=== PATIENT | female | born 1930 | race Caucasian/White ===

== ENCOUNTER 2018-05-02 14:32 | Inpatient (IN) | payer MEDICARE ==
--- NOTE | 2018-05-02 14:39 | ED ---
Shortness of Breath - HPI Summary HPI Summary: An 87 y/o F brought in by ambulance presents to ED with c/o SOB onset yesterday and worsening today. Pt has no PMHx of respiratory illness, but yesterday she noticed she was having increasing SOB and today, she was unable to catch her breath. Per EMS: her initial O2 sat was 80%, respiration rate: 30, and ETCO2: 58. Patient was given 1 duoneb, 2 nitro (denied CP to EMS) and put on C-Pap which improved her breathing en route. Upon arrival in ED, her O2 sat is 98%, ETCO2: 42. Pt has a PMHx of a-fib and takes Warfarin. - History of Current Complaint Hx Obtained From: EMS Onset/Duration: Gradual Onset, Lasting Days, Still Present Timing: Constant Current Severity: Severe Dyspnea At: Rest Alleviating Factors: EMS Tx - Allergy/Home Medications Allergies/Adverse Reactions: Allergies Allergy/AdvReac Type Severity Reaction Status Date / Time No Known Allergies Allergy Verified 11/14/15 16:07 Home Medications: Home Medications Dextran 70/Hypromellose [Artificial Tears] 1 each OP Q2HR 05/02/18 [History Confirmed 05/02/18] Fluorometholone 0.1% OPTH.MANUEL* [Fml 0.1% Opth.susp*] 1 drop .SEE ORDER BID 05/02 [History Confirmed 05/02/18] Metoprolol Succinate [Metoprolol Succinate ER] 200 mg PO BEDTIME 05/02/18 [ History Confirmed 05/02/18] Oxybutynin Chloride [Oxybutynin Chloride ER] 10 mg PO QAM 05/02/18 [History Confirmed 05/02/18] Rosuvastatin Calcium 20 mg PO EVERY OTHER DAY 05/02/18 [History Confirmed ] Spironolactone 25 mg PO SEE INSTRUCTIONS 05/02/18 [History Confirmed 05/02/18] Warfarin Sodium 5 mg PO DAILY 05/02/18 [History Confirmed 05/02/18] dilTIAZem HCl [Cartia Xt] 180 mg PO DAILY 05/02/18 [History Confirmed 05/02/18] PMH/Surg Hx/FS Hx/Imm Hx Previously Healthy: No Cardiovascular History: Reports: Hx Atrial Fibrillation Respiratory History: Denies: Hx Chronic Obstructive Pulmonary Disease (COPD) Sensory History: Reports: Hx Hearing Aid - Cancer History Hx Chemotherapy: No Hx Radiation Therapy: No - Immunization History Date of Tetanus Vaccine: upt o date Date of Influenza Vaccine: upto date - Family History Known Family History: Positive: None Family History: neg: Breast CA - Social History Occupation: Retired Lives: Alone Alcohol Use: Weekly Hx Substance Use: No Substance Use Type: Reports: None Hx Tobacco Use: No Smoking Status (MU): Never Smoked Tobacco Review of Systems Negative: Chest Pain Positive: Shortness Of Breath All Other Systems Reviewed And Are Negative: Yes Physical Exam - Summary Physical Exam Summary: Appearance: The patient is well-nourished in no acute distress and in no acute pain. Skin: The skin is warm and dry and skin color reflects adequate perfusion. HEENT: The head is normocephalic and atraumatic. The pupils are equal and reactive. The conjunctivae are clear and without drainage. Nares are patent and without drainage. Mouth reveals moist mucous membranes and the throat is without erythema and exudate. The external ears are intact. The ear canals are patent and without drainage. The tympanic membranes are intact. Neck: the neck is supple with full range of motion and non-tender. There are no carotid bruits. There is no neck vein distension. Respiratory: Chest is non-tender. There are diffuse expiratory wheezes, decreased breath sounds, and increased E to I. Cardiovascular: Heart is regular rate and rhythm. There is no murmur or rub auscultated. There is no peripheral edema and pulses are symmetrical and equal. Abdomen: The abdomen is soft and non-tender. There are normal bowel sounds heard in all four quadrants and there is no organomegaly palpated. Musculoskeletal: There is no back tenderness noted. Extremities are non-tender with full range of motion. There is good capillary refill. There is no peripheral edema or calf tenderness elicited. Neurological: Patient is alert and oriented to person, place and time. The patient has symmetrical motor strength in all four extremities. Cranial nerves are grossly intact. Deep tendon reflexes are symmetrical and equal in all four extremities. Psychiatric: The patient has an appropriate affect and does not exhibit any anxiety or depression. Triage Information Reviewed: Yes Vital Signs Reviewed: Yes Diagnostics - Laboratory Result Diagrams: 05/02/18 15:27 05/02/18 15:27 Lab Statement: Any lab studies that have been ordered have been reviewed, and results considered in the medical decision making process. - Radiology CXR Radiology Interpretation Completed By: Radiologist Summary of Radiographic Findings: IMPRESSION: CARDIOMEGALY WITH INTERSTITIAL EDEMA AND BILATERAL PLEURAL EFFUSIONS CONSISTENT WITH CHF. ED provider has reviewed this report. - EKG 1500 EKG Comparison: No Significant Change - from EKG on 02/02/11 Summary of EKG Findings: 60 bpm. Indeterminate rhythm. LBBB. Unchanged from EKG on 02/02/2011. Course/Dx - Course Course Of Treatment: Ms. Carrero doesn't have really any known lung disease but apparently became quite short of breath at home. The ambulance found her with a low pulse ox and tachycardia and tachypnea. She was apparently wheezing as they gave her an DuoNeb on the way in. This did seem to help her quite a bit and on arrival her pulse ox was in the mid 90s on 2 L. On exam she was tight and she was given additional nebulizer and some Solu-Medrol. I was concerned on her chest x-ray that she might have an infiltrate but the radiologist is reading his congestive heart failure. She does have a mildly elevated BNP although she chronically has an elevated BNP. The hospitalist service was contacted for admission. Fluids were held because of the possibility of CHF. - Diagnoses Provider Diagnoses: Respiratory insufficiency, CHF (congestive heart failure) - Physician Notifications Discussed Care of Patient With: Vesna Corey - hospitalist Time Discussed With Above Provider: 15:55 Instructed by Provider To: Admit As Inpatient - Critical Care Time Critical Care Time: 30-74 min - 30 mins CCT Discharge - Sign-Out/Discharge Documenting (check all that apply): Patient Departure - ADMIT Patient Received Moderate/Deep Sedation with Procedure: No - Discharge Plan Condition: Stable Disposition: ADMITTED TO [facility] - Billing Disposition and Condition Condition: STABLE Disposition: Admitted to [facility] - Attestation Statements Document Initiated by Scribe: Yes Documenting Scribe: Patricia Hernandez Provider For Whom Scribe is Documenting (Include Credential): Dr. Polo Garg MD Scribe Attestation: Patricia Vergara scribed for Dr. Polo Garg MD on 05/02/18 at 2042. Scribe Documentation Reviewed: Yes Provider Attestation: The documentation as recorded by the scribheron, Patricia Hernandez accurately reflects the service I personally performed and the decisions made by me, Dr. Polo Garg MD Status of Scribe Document: Viewed
[2018-05-02] MEDS ORDERED: methylPREDNISolone 125 MG* 2 ML VIAL IV ONE (14:50)
[2018-05-02] MEDS ORDERED: Albuterol/Ipratropium NEB.SOL* Albuterol 2.5 MG/Ipratropium 0.5 MG 3 ML INH ONE ×2 (14:50→15:25)
--- OUTSIDE RECORDS SUMMARY | 2018-05-02 15:00 | XMS REPORT | Continuity of Care Document ---
:1930 External Reference #:[id number] Author Name Kellie Bhat O.D. Address [address] [place] [address] Care Team Providers Name Role Phone Krista Schmitz M.D. Primary Care Physician Unavailable Payers Date Identification Numbers Payment Provider Subscriber Effective: 1994 Policy Number: [id number] Medicare - [facility] Janelle Carrero PayID: [id number] [address] [place] [address] Policy Number: [id number] [facility] Janelle Carrero PayID: [id number] [address] [place] [address] Advance Directives Description No Information Available Problems Date Description Provider Status Onset: Hearing loss Active Onset: Bladder muscle dysfunction - overactive Active Onset: Heart irregular Active Onset: Essential hypertension Active Onset: Tremor Active Note: mild Onset: Hypercholesterolemia Active Onset: 01/28/2016 Tear film insufficiency Eddy Whitaker M.D. Active Onset: 01/28/2016 Vitreous degeneration Eddy Whitaker M.D. Active Onset: 01/28/2016 Presence of intraocular lens Eddy Whitaker M.D. Active Onset: 04/24/2018 Conjunctivochalasis Kellie Bhat O.D. 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 /2018 s eyes twice [place], a day for 1 O.D. week, then discontinue Artificial Tears 01/26 Active Solution 0.1-0.3% as needed Eddy Russ /Rosalie Whitaker M.D. Metoprolol Active Tablets ER 200mg Unknown Succinate ER 24HR Spironolactone Active Tablets 25mg Unknown Crestor Active Tablets 20mg Unknown Oxybutynin Active Tablets ER 10mg Unknown Chloride ER / 24HR Warfarin Sodium Active Tablets 5mg Unknown / Cartia XT Active Caps ER 180mg Unknown / 24HR Immunizations Description No Information Available Vital Signs Description No Information Available Results Description No Information Available Procedures Date Code Description Status 01/28/2016 98358 Est Patient Comprehensive Exam Completed 12/12/2013 82125 Determination Of Refractive State Completed 12/12/2013 42111 Est Patient Comprehensive Exam Completed 12/11/2011 01005 Determination Of Refractive State Completed 12/11/2011 34529 Est Patient Comprehensive Exam Completed 11/11/2010 47980 Remove Secondary Cataract, Laser (Yag) Completed 11/04/2010 03305 Remove Secondary Cataract, Laser (Yag) Completed 10/15/2010 01942 Est Patient Comprehensive Exam Completed 03/28/2008 85480 Est Patient Comprehensive Exam Completed 03/16/2007 85918 Scanning Laser W/Interp And Report Completed 03/16/2007 33244 Determination Of Refractive State Completed 03/16/2007 61099 Est Patient Comprehensive Exam Completed 04/15/2006 22740 Scanning Laser W/Interp And Report Completed 04/15/2006 74023 Visual Field Exam Extended Completed 03/16/2006 70978 Est Patient Comprehensive Exam Completed 06/03/2005 20706 Est Patient Intermediate Exam Completed 04/18/2005 04120 Scanning Laser W/Interp And Report Completed 04/18/2005 55178 Scanning Laser W/Interp And Report Completed 04/18/2005 25146 Visual Field Exam Extended Completed 12/03/2004 50883 Fundus Photography With Interpretation And Report Completed 12/03/2004 57709 Determination Of Refractive State Completed 12/03/2004 45671 Est Patient Comprehensive Exam Completed 11/04/2004 04577 Rescheduled Appointment Completed 05/17/2004 38501 Est Patient Intermediate Exam Completed 05/03/2004 00167 Scanning Laser W/Interp And Report Completed 11/17/2003 84804 Visual Field Exam Intermediate Completed 11/02/2003 35142 Determination Of Refractive State Completed 11/02/2003 65328 Est Patient Comprehensive Exam Completed Encounters Type Date Location Provider Dx Diagnosis Office Visit 04/28/2014 Kellie Nuñez, 375.15 Dry Eyes ( [place] 9:45a , hernandez Xiao Syndrome) Office Visit 09/02/2005 Eddy Nuñez, 365.01 Low Risk Open 10:45a , hernandez De La Cruz Angle Glaucoma/ Suspect Plan of Treatment 04/24/2018 - Kellie Bhat O.D.H04.123 Dry eye syndrome of bilateral lacrimal glandsComments:Both of your eyes appear to be dry. Use artificial tears as directed. You can use the tears more often if you are reading a book or are on the computer, as we tend to blink less, making our eyes dry out more.[facility] offers a few items in our optical department to help alleviate dry eye symptoms. use artificial tears 3-4 times a day both eyesstart FML drops twice a day both eyesFollow up:1 week or sooner as [id number] Conjunctivochalasis, bilateralNew Medication:Fluorometholone 0.1 % - 1 drop both eyes twice a day for 1 week, then discontinueComments:Smoking can increase the risk of developing or worsening any eye related disease, as well as affect your overall health. If you are a smoker, we strongly recommend that you quit.If you are not a smoker, we strongly recommend that you do not start.
--- OUTSIDE RECORDS SUMMARY | 2018-05-02 15:00 | XMS REPORT | Continuity of Care Document ---
:1930 External Reference #:[id number] Author Name Kellie Bhat O.D. Address [address] [place] [place] [address] Care Team Providers Name Role Phone Krista Schmitz M.D. 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 s eyes twice [place], a day for 1 O.D. week, then discontinue Artificial Tears 01/26 Active Solution 0.1-0.3% as needed Eddy Russ /2015 Dorothy Whitaker Metoprolol Active Tablets ER 200mg Unknown Succinate ER / 24HR Spironolactone Active Tablets 25mg Unknown Crestor Active Tablets 20mg Unknown Oxybutynin Active Tablets ER 10mg Unknown Chloride ER /0000 24HR Warfarin Sodium Active Tablets 5mg Unknown / Cartia XT Active Caps ER 180mg Unknown / 24HR Immunizations Description No Information Available Vital Signs Description No Information Available Results Description No Information Available Procedures Date Code Description Status 04/24/2018 33507 New Patient Comprehensive Exam Completed 01/28/2016 04497 Est Patient Comprehensive Exam Completed 12/12/2013 46293 Determination Of Refractive State Completed 12/12/2013 30466 Est Patient Comprehensive Exam Completed 12/11/2011 87511 Determination Of Refractive State Completed 12/11/2011 23035 Est Patient Comprehensive Exam Completed 11/11/2010 10171 Remove Secondary Cataract, Laser (Yag) Completed 11/04/2010 44092 Remove Secondary Cataract, Laser (Yag) Completed 10/15/2010 07361 Est Patient Comprehensive Exam Completed 03/28/2008 04358 Est Patient Comprehensive Exam Completed 03/16/2007 84178 Scanning Laser W/Interp And Report Completed 03/16/2007 37276 Determination Of Refractive State Completed 03/16/2007 83074 Est Patient Comprehensive Exam Completed 04/15/2006 91721 Visual Field Exam Extended Completed 04/15/2006 55511 Scanning Laser W/Interp And Report Completed 03/16/2006 45120 Est Patient Comprehensive Exam Completed 06/03/2005 10468 Est Patient Intermediate Exam Completed 04/18/2005 50677 Scanning Laser W/Interp And Report Completed 04/18/2005 04257 Scanning Laser W/Interp And Report Completed 04/18/2005 29100 Visual Field Exam Extended Completed 12/03/2004 50157 Fundus Photography With Interpretation And Report Completed 12/03/2004 92966 Determination Of Refractive State Completed 12/03/2004 78671 Est Patient Comprehensive Exam Completed 11/04/2004 81102 Rescheduled Appointment Completed 05/17/2004 21903 Est Patient Intermediate Exam Completed 05/03/2004 57458 Scanning Laser W/Interp And Report Completed 11/17/2003 14692 Visual Field Exam Intermediate Completed 11/02/2003 65720 Determination Of Refractive State Completed 11/02/2003 93289 Est Patient Comprehensive Exam Completed Encounters Type Date Location Provider Dx Diagnosis Office Visit 04/28/2014 Kellie Nuñez, 375.15 Dry Eyes ( [place] 9:45a , hernandez Xiao Syndrome) Office Visit 09/02/2005 Eddy Whitaker, Eddy Whitaker, 365.01 Low Risk Open 10:45a , hernandez De La Cruz Angle Glaucoma/ Suspect Plan of Treatment 05/01/2018 - Kellie Bhat O.D.H04.123 Dry eye syndrome of bilateral lacrimal glandsComments:Both of your eyes appear to be dry. Use artificial tears as directed. You can use the tears more often if you are reading a book or are on the computer, as we tend to blink less, making our eyes dry out more.[facility] offers a few items in our optical department to help alleviate dry eye symptoms. continue artificial tears as neededcontinue FML drops twice a day for 1 more week, then discontinueFollow up:1 year You can expect to have your eyes dilated at your next visit. If Dr. Bhat orders any additional testing, it may require extra time. We recommend that you bring sunglasses, as dilation drops often make you light sensitive until they wear off. We always recommend you bring someone to drive you home if you are uncomfortable driving with your eyes dilated. If you have any questions before your next visit, feel free to call our office at .C12.126 Conjunctivochalasis, bilateralComments:Smoking can increase the risk of developing or worsening any eye related disease, as well as affect your overall health. If you are a smoker , we strongly recommend that you quit.If you are not a smoker, we strongly recommend that you do not start.
[2018-05-02 15:35] LABS: ABS Basophils 0.1 10^3/ul (0-0.2); ABS Eosinophils 0 10^3/ul (0-0.6); ABS Lymphocytes 0.6 10^3/ul (1.0-4.8); ABS Monocytes 0.7 10^3/ul (0-0.8); ABS Neutrophils 7.9 10^3/ul (1.5-7.7); ABS Nucleated RBC 0 10^3/ul; Eosinophil % 0.4 %; Hematocrit 37 % (33-41); Hemoglobin 12.3 g/dL (12.0-16.0); Lymphocyte % 6.3 %; Mean Corpuscular HGB Conc 33 g/dL (31-36); Mean Corpuscular Hemoglobin 30 pg (27-31); Mean Corpuscular Volume 92 fL (80-97); Nucleated Red Blood Cells % 0; Platelet Count 287 10^3/uL (150-450); Red Blood Count 4.03 10^6 /uL (3.70-4.87); Red Cell Distribution Width 16 % (10.5-15); White Blood Count 9.3 10^3/uL (3.5-10.8)
[2018-05-02 15:53] LABS: Albumin 3.8 g/dL (3.2-5.2); Albumin/Globulin Ratio 1.2 (1-3); BUN/Creatinine Ratio 25.6 (8-20); C Reactive Protein 41.88 mg/L (<8.01); Calcium 9.1 mg/dL (8.6-10.3); EGFR African American 84.3 (>60); EGFR Non-African American 69.7 (>60); Globulin 3.1 g/dL (2-4); Potassium 3.8 mmol/L (3.5-5.0); Total Bilirubin 1.7 mg/dL (0.2-1.0); Total Protein 6.9 g/dL (6.4-8.9)
[2018-05-02 15:57] LABS: Troponin I 0.03 ng/mL (<0.04)
[2018-05-02] MEDS ORDERED: Al Hydrox/Mg Hydrox/Simet LIQ* 30 ML UDC PO PRN (16:47)
[2018-05-02] MEDS ORDERED: Acetaminophen TAB* 325 MG PO PRN (16:47)
[2018-05-02] MEDS ORDERED: Albuterol/Ipratropium NEB.SOL* Albuterol 2.5 MG/Ipratropium 0.5 MG 3 ML INH PRN (17:04)
[2018-05-02] MEDS ORDERED: Furosemide IV* 10 MG/ML VIAL (40 MG) IV ONE (17:06)
[2018-05-02 17:44] LABS: Influenza A Molecular NEGATIVE (Negative); Influenza B Molecular NEGATIVE (Negative)
[2018-05-02] MEDS ORDERED: Warfarin TAB(*) 5 MG PO SCH (17:45)
[2018-05-02] MEDS: Warfarin TAB(*) 5 MG PO SCH (18:44)
[2018-05-02] MEDS: Enoxaparin(*) 80 MG/0.8 ML SYR SUBCUT SCH (18:45)
--- NOTE | 2018-05-02 20:45 | HP ---
CC: Dr. Schmitz; Dr. Winston * HISTORY AND PHYSICAL: DATE OF ADMISSION: 05/02/18 PRIMARY CARE PROVIDER: Dr. Schmitz. CARDIOLOGY: Dr. Winston. CHIEF COMPLAINT: Shortness of breath. HISTORY OF PRESENT ILLNESS: Janelle Carrero is an 87-year-old female, who was brought in to the emergency department by the EMS/ambulance for acute respiratory failure, on CPAP. She was able to be weaned off CPAP in the emergency department and currently is on 6 L of oxygen with oxygen saturation of 100%. The patient is with her sister in the room. The patient's sister is 97 years old and she is the forklift driver in the family. The sisters live together. They are both hard of hearing. It appears that the patient's older sister is a better historian than the patient during the evaluation. The patient has had problems with shortness of breath for the past 2 weeks. They are both very tangential historians and mentioned that the patient feel couple of years ago. They also mentioned right ankle edema that happened some time ago, but that resolved. The patient uses CPAP at night, but never used oxygen in the past. The patient also noted that in the past several days she had problems with the eyes and that they were swollen. I believe what they are trying to describe is conjunctival edema. She was planning to see a doctor for it, but it improved by itself. Ms. Carrero denies any cough or purulent sputum production or fevers. It appears that she presented with congestive heart failure, although her weight had been unchanged and she did not recall to notice that she was retaining any fluid. I suspect the precipitating factor could have been bronchospasm due to viral infection. She is going to be placed on overnight observation with a diagnosis of bronchospasm, acute CHF likely diastolic, acute hypoxemic respiratory failure. PAST MEDICAL HISTORY: 1. History of diagnosis of diastolic CHF in the past for which she used to be on furosemide several years ago, but that was discontinued and the patient is not sure why. 2. History of atrial fibrillation, chronic, status post AV node ablation and pacer placement. 3. History of hypertension. 4. History of [id number] mitral regurgitation. MEDICATIONS: Include: 1. Aldactone 25 mg 3 times a week. 2. Coumadin 5 mg on a daily basis, but the patient stated that the dose was changed frequently and she does not remember the current dose. 3. Crestor 20 mg daily. 4. Metoprolol succinate 200 mg q.h.s. 5. Oxybutynin 10 mg q.a.m. 6. CPAP nightly. 7. Cartia XT 180 mg q.a.m. 8. Vitamin D3 50,000 units monthly p.o. ALLERGIES: No known drug allergies. FAMILY HISTORY: Reviewed and noncontributory. SOCIAL HISTORY: The patient quit smoking in the 1970s. She denies any alcohol or drug use. She lives with her sister who is 97 years old and is the forklift driver in the family. She names her sister, Norma Francisco as her surrogate. The patient was advised to ambulate with a cane, but usually she ambulates without support at home. She has history of falls, but none recently. The patient is not aware of discussing code status with her primary care provider in the past, but she wishes to be a full code for the time being. REVIEW OF SYSTEMS: Please see history of present illness. Please also note that the patient and the patient's sister are both very poor historians. The patient stated that shortness of breath developed 2 weeks ago. She is not sure if it is related to change in position. She denies any chest pain. She has had problems with swelling of the eyes several days ago, but that started resolving. She denies any problems with increased weight. Her appetite had been poor for the past 2 days and she had been lying in bed and sleeping a lot. The patient's sister also noted that she had abdominal breathing pattern in the past couple of days. The patient has history of chronic leg edema, which is not worse than prior. All the remaining 12 systems were reviewed with both of the sisters and were otherwise negative. PHYSICAL EXAMINATION GENERAL: The patient is a pleasant 87-year-old female, who is in no acute distress. The patient is alert and oriented x2. She is rather poor historian. She knows the year, but she is not certain to the date otherwise. VITAL SIGNS: Blood pressure of 173/83, heart rate of 60 and regular, respiratory rate 22, oxygen saturation 100% on 6 L of oxygen via nasal cannula, temperature of 98.1. HEENT: Head: Atraumatic, normocephalic. Eyes: Pupils are equal, reactive to light and accommodation. Oropharynx is clear. Mucosa moist. NECK: Supple. No JVD. No bruits bilaterally. RESPIRATORY: Crackles at bilateral bases and otherwise wheezes in bilateral mid lungs. CARDIOVASCULAR: Irregularly irregular rhythm with 2/6 systolic ejection murmur noted on auscultation of the apex. ABDOMEN: Soft, nontender. Bowel sounds are present in all 4 quadrants. EXTREMITIES: There is trace pedal edema, right more than left. There is no clubbing and no cyanosis. NEUROLOGIC: The patient is very hard of hearing. Cranial nerves II through XII are grossly intact. Speech clear. Motor strength is 5/5 bilaterally. SKIN: On evaluation of the skin, no ecchymotic areas or rashes noted. DIAGNOSTIC STUDIES/LAB DATA: White blood cell count of 9.3, hemoglobin 12.3, hematocrit 37, and platelets 287. Sodium was 143, potassium 3.8, chloride 107, carbon dioxide 27, BUN 20, creatinine 0.78. Liver function tests unremarkable apart from bilirubin total of 1.7. C- reactive protein was 41. Troponin of 0.03. Lactic acid of 2.4. Brain natriuretic peptide was 904. Portable chest x-ray, read by the radiologist, impression: "Cardiomegaly with interstitial edema and bilateral pleural effusions consistent with CHF." The patient's EKG showed likely AFib with left bundle branch block, heart rate of 60. I suspect it is a paced rhythm, although I am unable to visualize pacer spikes at this point. ASSESSMENT AND PLAN: 1. Acute hypoxemic respiratory failure, likely due to congestive heart failure. I suspect that the patient developed a viral illness that caused bronchospasm and conjunctival edema and that precipitated the congestive heart failure. At this point, the patient already received Solu-Medrol in the emergency department. I am going to continue prednisone 50 mg daily for bronchospasm. The patient's congestive heart failure is going to be treated with a dose of Lasix x1 tonight. I will be careful with diuretics due to the patient's history of low appetite and overall despite her congestive heart failure and pulmonary edema on x-ray, otherwise the patient appears not to have that much fluid on board. Daily weights are going to be continued to be checked as well as intake and output summaries. I will obtain a transthoracic echocardiogram to evaluate the patient's EF. 2. In regards to the patient's bronchospasm, it appears to be related to a viral infection. The patient has not had any fevers or purulent sputum production to support a bacterial infection and treatment with antibiotics at this point, but we will continue to monitor. 3. The patient has history of chronic atrial fibrillation and she is on Coumadin. Her INR is currently being drawn in the emergency department and we will follow with that appropriately. We will also continue the patient's Toprol -XL at 200 mg q.h.s. as well as Cartia XT 180 mg daily. 4. For DVT prophylaxis, the patient is going to be continued on Coumadin with INR checks daily. 5. The patient's code status so far is full. Both sisters had a discussion about possibility of do not resuscitate, but they are not willing to sign any documentation and they are aware that unless MOLST it is documented, they are going to be placed on a full code status. TIME SPENT: Approximately 68 minutes was spent on admission of this patient, more than half that time was spent [id number] with the patient during the interview and physical exam. [id number]/[facility] #: [id number] JASMEET
[2018-05-02] MEDS: Fluorometholone 0.1% OPTH.SUS* 5 ML BTL BOTH EYES SCH (21:59)
[2018-05-02] MEDS: Metoprolol Succinate XL TAB* 200 MG TAB.XL PO SCH (21:59)
[2018-05-02] MEDS: Docusate CAP* 100 MG PO SCH (21:59)
[2018-05-02] MEDS ORDERED: Artificial Tears* 15 ML BTL BOTH EYES PRN (22:00)
[2018-05-03] MEDS: Enoxaparin(*) 80 MG/0.8 ML SYR SUBCUT SCH ×2 (05:34→18:19)
[2018-05-03 06:16] LABS: ABS Basophils 0 10^3/ul (0-0.2); ABS Eosinophils 0 10^3/ul (0-0.6); ABS Lymphocytes 0.4 10^3/ul (1.0-4.8); ABS Monocytes 0.1 10^3/ul (0-0.8); ABS Neutrophils 5.8 10^3/ul (1.5-7.7); ABS Nucleated RBC 0 10^3/ul; Eosinophil % 0.1 %; Hematocrit 35 % (33-41); Hemoglobin 11.6 g/dL (12.0-16.0); Lymphocyte % 5.5 %; Mean Corpuscular HGB Conc 33 g/dL (31-36); Mean Corpuscular Hemoglobin 30 pg (27-31); Mean Corpuscular Volume 90 fL (80-97); Mean Platelet Volume 7.2 fL (7.4-10.4); Nucleated Red Blood Cells % 0; Platelet Count 225 10^3/uL (150-450); Red Blood Count 3.88 10^6 /uL (3.70-4.87); Red Cell Distribution Width 15 % (10.5-15); White Blood Count 6.3 10^3/uL (3.5-10.8)
[2018-05-03 06:19] LABS: INR 1.09 (0.77-1.02)
[2018-05-03 06:32] LABS: BUN/Creatinine Ratio 28.4 (8-20); Calcium 8.9 mg/dL (8.6-10.3); EGFR African American 80.7 (>60); EGFR Non-African American 66.7 (>60); Potassium 4.1 mmol/L (3.5-5.0)
[2018-05-03] MEDS: predniSONE TAB* 50 MG PO SCH (09:14)
[2018-05-03] MEDS: Docusate CAP* 100 MG PO SCH ×2 (09:14→20:40)
[2018-05-03] MEDS: Fluorometholone 0.1% OPTH.SUS* 5 ML BTL BOTH EYES SCH ×2 (09:14→20:40)
[2018-05-03] MEDS: Spironolactone TAB* 25 MG PO SCH (09:14)
[2018-05-03] MEDS: Diltiazem CD CAP* 180 MG PO SCH (09:14)
--- NOTE | 2018-05-03 12:50 | PN ---
Subjective Date of Service: 05/03/18 Interval History: Pt c/o CP when walking to bathroom. Very poor historian. Unable to specify if the pain was present in the past. still SOB. seen with her 97 yo sister by the bedside Objective Active Medications: Acetaminophen (Tylenol Tab*) 650 mg PO Q4H PRN PRN Reason: FEVER/PAIN Al Hydrox/Mg Hydrox/Simethicone (Maalox Plus*) 30 ml PO Q6H PRN PRN Reason: INDIGESTION Albuterol/Ipratropium (Duoneb (Albuterol 2.5 Mg/Ipratropium 0.5 Mg)) 1 neb INH Q4H PRN PRN Reason: SOB/WHEEZING Diltiazem HCl (Cardizem Cd Cap*) 180 mg PO DAILY [facility] Last Admin: 05/03/18 09:14 Dose: 180 mg Docusate Sodium (Colace Cap*) 100 mg PO BID [facility] Last Admin: 05/03/18 09:14 Dose: 100 mg Enoxaparin Sodium (Lovenox(*)) 80 mg SUBCUT Q12H [facility] Last Admin: 05/03/18 05:34 Dose: 80 mg Fluorometholone Acetate (Fml 0.1% Opth.Susp*) 1 drop BOTH EYES BID [facility] Stop: 05/09/18 09:01 Last Admin: 05/03/18 09:14 Dose: 1 drop Furosemide (Lasix Iv*) 40 mg IV DAILY [facility] Metoprolol Succinate (Toprol Xl Tab*) 200 mg PO BEDTIME [facility] Last Admin: 05/02/18 21:59 Dose: 200 mg Polyvinyl Alcohol (Polyvinyl Alcohol 1.4% Opth*) 1 drop BOTH EYES Q2HR PRN PRN Reason: DRY EYES Prednisone (Deltasone Tab*) 50 mg PO DAILY [facility] Last Admin: 05/03/18 09:14 Dose: 50 mg Spironolactone (Aldactone Tab*) 25 mg PO DAILY [facility] Last Admin: 05/03/18 09:14 Dose: 25 mg Warfarin Sodium (Coumadin Tab(*)) 5 mg PO DAILY@1700 [facility]; Protocol Last Admin: 05/02/18 18:44 Dose: 5 mg Vital Signs - 8 hr 05/03/18 05/03/18 05/03/18 07:38 08:40 09:13 Temperature 97.1 F Pulse Rate 59 68 82 Respiratory 16 18 Rate Blood Pressure 163/68 (mmHg) O2 Sat by Pulse 93 93 Oximetry Oxygen Devices in Use Now: Nasal Cannula Appearance: 87 yo F in NAD, AAOx3 Eyes: No Scleral Icterus, PERRLA Ears/Nose/Mouth/Throat: NL Teeth, Lips, Gums, Mucous Membranes Moist Neck: NL Appearance and Movements; NL JVP, Trachea Midline Respiratory: Symmetrical Chest Expansion and Respiratory Effort, - - wheezes b/ l lower lungs Cardiovascular: NL Sounds; No Murmurs; No JVD, RRR Abdominal: NL Sounds; No Tenderness; No Distention Lymphatic: No Cervical Adenopathy Extremities: No Clubbing, Cyanosis, - - trace pedal edema b/l Skin: No Nodules or Sclerosis Neurological: NL Muscle Strength and Tone Result Diagrams: 05/03/18 05:57 05/03/18 05:57 Microbiology and Other Data: Microbiology 05/02/18 17:15 Influenza Types A,B Antigen - Final Nasopharyngeal Specimen received for Influenza A/B Molecular testing Assess/Plan/Problems-Billing Assessment: 87 yo f with h/o chronic A. fib, s/p AV node ablation and subsequent paced who presents with acute resp failure on CPAP(weaned off in ED) - Patient Problems (1) Acute hypoxemic respiratory failure Comment: due to acute diastolic CHF and bronchospasm likely related to viral infection Still with siginificant dyspnea Will cont daily Lasix IV and home Aldactone (increased to daily dose) cont Prednisone for bronchospasm (2) Acute diastolic CHF (congestive heart failure) Comment: cont Lasix Echo pending (3) Chest pain Comment: Pt c/o CP with exertion-possible the pt has ischemic heart disease that precipitated CHF(although trops are neg) will obtain chemical stress test in aM (4) Atrial fibrillation Comment: chronic, with normal (at admission) INR. Cont Cartia and Toprol XL Pt stated that she takes all her meds as prescribed. will d/w PCP [facility] with lovenox for now Cont Coumadin, monitor INR (5) Bronchospasm Comment: so far no evidence of bacterial infection cont Prednisone Cont nebs prn (6) Physical deconditioning Comment: pt is very deconditioned and I am no sure if she will be able to return to independent living PT/OT ordered (7) DVT prophylaxis Comment: Lovenox till INR therapeutic (8) Dementia Comment: as per d/w Dr. Schmitz pt's baseline mini mental status exam is 15 out of 30 points. Placed in a SW consult for HCP determination and possible placement Status and Disposition: OBV switched to inpatient
[2018-05-03] MEDS: Furosemide IV* 10 MG/ML VIAL (40 MG) IV SCH (13:53)
--- NOTE | 2018-05-03 14:15 | ECHO ---
Patient: BHAVESH NATH [facility] Rec#: [id number] : 1930 Date: 05/03/2018 Age: 87y Height: 160 cm / 63.0 in Weight: 79 kg / 174.1 lbs Sex: F BSA: 1.82 Room#: 440 Admit Date#: 05/02/2018 Type: Inpatient Referring: Vesna Corey MD Reading: Elan Zuniga MD Teamsite Developer: Rema Espinal,MARTYCS,RDMS CC: Krista Schmitz MD Transthoracic Echocardiogram Indication: CHF BP: 165/85 HR: 75 Rhythm: Paced Findings History: CHF, AFIB, pacemaker, HTN, MV insufficiency Technical Comments: The study quality is fair. Left Ventricle: The left ventricular chamber size is normal. Global left ventricular wall motion and contractility are within normal limits. There is normal left ventricular systolic function. The estimated ejection fraction is 55-60%. There is abnormal ventricular septal wall motion consistent with right ventricular pacemaker. The assessment of diastolic function is non-diagnostic. The patient was unable to perform a Valsalva maneuver. Left Atrium: The left atrium is severely dilated. Right Ventricle: The right ventricular chamber size and systolic function are within normal limits. A pacemaker wire is visualized in the right ventricle. Right Atrium: The right atrium is moderate to severely dilated. A pacemaker wire is visualized in the right atrium. Aortic Valve: The aortic valve is trileaflet. The aortic valve leaflets are moderately thickened. Systolic excursion of the aortic valve cusps is reduced. There is trace to mild aortic regurgitation. There is mild aortic stenosis. The mean gradient of the aortic valve is 10 mmHg. The aortic valve area, by peak velocities, is calculated at 1.5 cm2. Highest aortic valve velocity was acquired with Pedoff in apical position. Mitral Valve: Moderate mitral leaflet calcification is visualized. There is mild to moderate mitral regurgitation. There is mild mitral stenosis. Tricuspid Valve: The tricuspid valve leaflets are normal. There is trace tricuspid regurgitation. Unable to estimate the right ventricular systolic pressure. Pulmonic Valve: The pulmonic valve appears normal. There is a trace pulmonic regurgitation. Pericardium: There is no significant pericardial effusion. A left pleural effusion is present. Aorta: The aortic root appears normal. The aortic arch is not well visualized. Pulmonary Artery: The main pulmonary artery is not well visualized. Venous: There is an approximate 50% respiratory change in the inferior vena cava dimension. Conclusions Global left ventricular wall motion and contractility are within normal limits. There is normal left ventricular systolic function. The estimated ejection fraction is 55-60%. A pacemaker wire is visualized in the right ventricle. There is abnormal ventricular septal wall motion consistent with right ventricular pacemaker. The left atrium is severely dilated. The aortic valve leaflets are moderately thickened. There is trace to mild aortic regurgitation. There is mild aortic stenosis. The mean gradient of the aortic valve is 10 mmHg. There is mild to moderate mitral regurgitation. Moderate mitral leaflet calcification is visualized. There is trace tricuspid regurgitation. Unable to estimate the right ventricular systolic pressure. There is no significant pericardial effusion. Compared to study of 12/2016, the LV function is the same The mild is new Measurements Name Value Normal Range RVIDd (AP) 2D 2.8 cm (0.9 - 2.6) RVDdMajor (2D) 2.6 cm (2.2 - 4.4) RAd ISD 4CH 6.5 cm (3.4 - 4.9) RA (A4C)W 4.9 cm (2.9 - 4.6) IVSd (2D) 1 cm (0.6 - 1) LVPWd (2D) 0.9 cm (0.6 - 1) LVIDd (2D) 4.9 cm (3.6 - 5.4) LVIDs (2D) 2.9 cm - LV FS (2D) 42 % (25 - 45) Aortic Annulus 1.9 cm (1.4 - 2.6) Ao root diameter (2D) 2.7 cm (2.1 - 3.5) Ascending Ao 2.8 cm (2.1 - 3.4) Aortic arch 2.1 cm (1.8 - 3.4) LA dimension (AP) 2D 4.7 cm (2.3 - 3.8) LAd ISD 4CH 7.4 cm (2.9 - 5.3) LA ISD 4CH W 5.2 cm (2.5 - 4.5) Name Value Normal Range LA ESV BP (A/L) index 70 ml/m2 - Name Value Normal Range MV E-wave Vmax 1.5 m/sec - MV deceleration time 232 msec - LV septal e' Vmax 0.06 m/sec - LV lateral e' Vmax 0.08 m/sec - LV E:e' septal ratio 25.5 ratio - LV E:e' lateral ratio 20 ratio - Name Value Normal Range AV Vmax 2.4 m/sec - AV VTI 56 cm - AV peak gradient 23 mmHg - AV mean gradient 10 mmHg - LVOT diameter 2 cm - LVOT Vmax 1.1 m/sec - LVOT VTI 23 cm - LVOT peak gradient 5 mmHg - LVOT mean gradient 2 mmHg - DOI (VTI) 0.4 ratio - FABIAN (continuity Vmax) 1.5 cm2 - FABIAN (continuity VTI) 1.3 cm2 - Name Value Normal Range MV Vmax 1.9 m/sec - MV VTI 50 cm - MV peak gradient 15 mmHg - MV mean gradient 4 mmHg - MV PHT 89 msec - MVA (PHT) 2.5 cm2 - MVA (continuity VTI) 1.4 cm2 - Name Value Normal Range IVC diameter 1.8 cm - Name Value Normal Range PV Vmax 0.8 m/sec - PV peak gradient 2.6 mmHg -
[2018-05-03] MEDS ORDERED: Warfarin TAB(*) 5 MG PO SCH (17:00)
[2018-05-03] MEDS: Warfarin TAB(*) 5 MG PO SCH (18:19)
[2018-05-03 18:47] LABS: Urine Appearance Cloudy; Urine Bilirubin Negative (Negative); Urine Blood Negative (Negative); Urine Color Yellow; Urine Glucose Negative (Negative); Urine Ketones Negative (Negative); Urine Nitrite Negative (Negative); Urine Protein Negative (Negative); Urine Specific Gravity 1.009 (1.010-1.030); Urine Urobilinogen Negative (Negative)
[2018-05-03] MEDS: Zolpidem TAB* 10 MG PO PRN (20:40)
[2018-05-03] MEDS: Metoprolol Succinate XL TAB* 200 MG TAB.XL PO SCH (20:40)
[2018-05-04] MEDS: Enoxaparin(*) 80 MG/0.8 ML SYR SUBCUT SCH ×2 (05:35→18:25)
[2018-05-04 05:53] LABS: ABS Basophils 0.1 10^3/ul (0-0.2); ABS Eosinophils 0 10^3/ul (0-0.6); ABS Lymphocytes 0.8 10^3/ul (1.0-4.8); ABS Monocytes 1.2 10^3/ul (0-0.8); ABS Neutrophils 12.9 10^3/ul (1.5-7.7); ABS Nucleated RBC 0 10^3/ul; Eosinophil % 0 %; Hematocrit 35 % (33-41); Hemoglobin 11.4 g/dL (12.0-16.0); Lymphocyte % 5.3 %; Mean Corpuscular HGB Conc 33 g/dL (31-36); Mean Corpuscular Hemoglobin 30 pg (27-31); Mean Corpuscular Volume 91 fL (80-97); Mean Platelet Volume 7.4 fL (7.4-10.4); Nucleated Red Blood Cells % 0; Platelet Count 273 10^3/uL (150-450); Red Blood Count 3.82 10^6 /uL (3.70-4.87); Red Cell Distribution Width 15 % (10.5-15)
[2018-05-04 05:57] LABS: INR 1.12 (0.77-1.02)
[2018-05-04 06:14] LABS: BUN/Creatinine Ratio 40.7 (8-20); Calcium 8.8 mg/dL (8.6-10.3); EGFR African American 70.6 (>60); EGFR Non-African American 58.3 (>60); Potassium 3.7 mmol/L (3.5-5.0)
[2018-05-04] MEDS: Docusate CAP* 100 MG PO SCH ×2 (09:12→21:44)
[2018-05-04] MEDS: Diltiazem CD CAP* 180 MG PO SCH (09:12)
[2018-05-04] MEDS: Spironolactone TAB* 25 MG PO SCH (09:12)
[2018-05-04] MEDS: predniSONE TAB* 50 MG PO SCH (09:12)
[2018-05-04] MEDS: Furosemide IV* 10 MG/ML VIAL (40 MG) IV SCH (09:13)
[2018-05-04] MEDS: Fluorometholone 0.1% OPTH.SUS* 5 ML BTL BOTH EYES SCH ×2 (09:14→21:45)
--- NOTE | 2018-05-04 11:20 | PN ---
Subjective Date of Service: 05/04/18 Interval History: Pt had to get to the bathroom quickly and did not wait for the aide to help her. Fell on the way to the bathroom hitting her upper back and subsequently back of head. Moffat well. Neuro nonfocal. Still very poor historian with NEZ PERCE. denies CP Objective Active Medications: Acetaminophen (Tylenol Tab*) 650 mg PO Q4H PRN PRN Reason: FEVER/PAIN Al Hydrox/Mg Hydrox/Simethicone (Maalox Plus*) 30 ml PO Q6H PRN PRN Reason: INDIGESTION Albuterol/Ipratropium (Duoneb (Albuterol 2.5 Mg/Ipratropium 0.5 Mg)) 1 neb INH Q4H PRN PRN Reason: SOB/WHEEZING Diltiazem HCl (Cardizem Cd Cap*) 180 mg PO DAILY [facility] Last Admin: 05/04/18 09:12 Dose: 180 mg Docusate Sodium (Colace Cap*) 100 mg PO BID [facility] Last Admin: 05/04/18 09:12 Dose: 100 mg Enoxaparin Sodium (Lovenox(*)) 80 mg SUBCUT Q12H [facility] Last Admin: 05/04/18 05:35 Dose: 80 mg Fluorometholone Acetate (Fml 0.1% Opth.Susp*) 1 drop BOTH EYES BID [facility] Stop: 05/09/18 09:01 Last Admin: 05/04/18 09:14 Dose: 1 drop Metoprolol Succinate (Toprol Xl Tab*) 200 mg PO BEDTIME [facility] Last Admin: 05/03/18 20:40 Dose: 200 mg Polyvinyl Alcohol (Polyvinyl Alcohol 1.4% Opth*) 1 drop BOTH EYES Q2HR PRN PRN Reason: DRY EYES Prednisone (Deltasone Tab*) 50 mg PO DAILY [facility] Last Admin: 05/04/18 09:12 Dose: 50 mg Spironolactone (Aldactone Tab*) 25 mg PO DAILY [facility] Last Admin: 05/04/18 09:12 Dose: 25 mg Warfarin Sodium (Coumadin Tab(*)) 5 mg PO DAILY@1700 [facility]; Protocol Last Admin: 05/03/18 18:19 Dose: 5 mg Zolpidem Tartrate (Ambien Tab*) 5 mg PO BEDTIME PRN PRN Reason: INSOMNIA Last Admin: 05/03/18 20:40 Dose: 5 mg Vital Signs - 8 hr 05/04/18 05/04/18 05/04/18 04:14 08:11 09:13 Temperature 97.1 F 97.2 F 97.2 F Pulse Rate 60 59 59 Respiratory 20 16 16 Rate Blood Pressure 146/52 143/68 143/68 (mmHg) O2 Sat by Pulse 93 99 99 Oximetry Oxygen Devices in Use Now: Nasal Cannula Appearance: 87 yo F, very NEZ PERCE, poor historian, know her and that she is in hospital. able to follow commands Eyes: No Scleral Icterus, PERRLA Ears/Nose/Mouth/Throat: NL Teeth, Lips, Gums, Mucous Membranes Moist Neck: NL Appearance and Movements; NL JVP, Trachea Midline Respiratory: Symmetrical Chest Expansion and Respiratory Effort Cardiovascular: - - irregular Abdominal: NL Sounds; No Tenderness; No Distention, No Hepatosplenomegaly Lymphatic: No Cervical Adenopathy Extremities: No Clubbing, Cyanosis, - - trace pedal edema b/l Skin: - - ecchymosis on left shoulder blade Neurological: NL Muscle Strength and Tone Result Diagrams: 05/04/18 05:32 05/04/18 05:32 Microbiology and Other Data: Microbiology 05/02/18 17:15 Influenza Types A,B Antigen - Final Nasopharyngeal Specimen received for Influenza A/B Molecular testing Assess/Plan/Problems-Billing Assessment: 87 yo f with h/o chronic A. fib, s/p AV node ablation and subsequent paced who presents with acute resp failure on CPAP(weaned off in ED) - Patient Problems (1) Acute hypoxemic respiratory failure Comment: due to acute diastolic CHF and bronchospasm likely related to viral infection dyspnea is improving will cont home Aldactone (increased to daily dose), hold Lasix for now due to increased BUN today cont Prednisone for bronchospasm (2) Acute diastolic CHF (congestive heart failure) Comment: Echo shows EF 50% and mid-mod MR, mild (3) Chest pain Comment: Pt c/o CP with exertion on 05/03-possible the pt has ischemic heart disease that precipitated CHF(although trops are neg) chemical stress test today (4) Atrial fibrillation Comment: chronic, with normal (at admission) INR. Cont Cartia and Toprol XL Pt stated that she takes all her meds as prescribed. According to d/w DR. Schmitz pt's has mod demnetia , although her INR had be therapeutic in the past. It appears thst she stoped taking her med probably 2 weeks ago and may have developed CHF due to that [facility] with lovenox for now Cont Coumadin, monitor INR (5) Bronchospasm Comment: so far no evidence of bacterial infection. Leukocytosis today likely due to steroids cont Prednisone Cont nebs prn (6) Physical deconditioning Comment: pt is very deconditioned and I am no sure if she will be able to return to independent living PT/OT ordered (7) DVT prophylaxis Comment: Lovenox till INR therapeutic (8) Dementia Comment: as per d/w Dr. Schmitz pt's baseline mini mental status exam is 15 out of 30 points. Placed in a consult for HCP determination and possible placement Status and Disposition: inpatient
[2018-05-04] MEDS ORDERED: Regadenoson* 0.4 MG/5 ML SYRINGE ONE (11:31)
[2018-05-04] MEDS ORDERED: Aminophylline IV* 25 MG/ML 10 ML VIAL ONE (11:32)
[2018-05-04] MEDS: Warfarin TAB(*) 5 MG PO SCH (18:25)
[2018-05-04] MEDS ORDERED: Mirtazapine TAB* 15 MG PO SCH (21:00)
[2018-05-04] MEDS: Zolpidem TAB* 10 MG PO PRN (21:45)
[2018-05-04] MEDS: Metoprolol Succinate XL TAB* 200 MG TAB.XL PO SCH (21:45)
[2018-05-05] MEDS: Enoxaparin(*) 80 MG/0.8 ML SYR SUBCUT SCH ×2 (06:07→17:47)
[2018-05-05] MEDS ORDERED: Dextrose 50% Syringe 50 ML* 25 GM/50 ML SYRINGE ONE (09:02)
[2018-05-05 09:46] LABS: INR 1.43 (0.77-1.02)
[2018-05-05 09:57] LABS: BUN/Creatinine Ratio 39.1 (8-20); Calcium 8.7 mg/dL (8.6-10.3); EGFR African American 74.4 (>60); EGFR Non-African American 61.4 (>60); Magnesium 2.1 mg/dL (1.9-2.7); Potassium 3.8 mmol/L (3.5-5.0)
--- NOTE | 2018-05-05 10:04 | PN ---
Subjective Date of Service: 05/05/18 Interval History: Pt was found minimally responsive this AM. As per d/w RN, pt sleep well last night -got Remeron last night for sleep (the first dose ever). Had been refusing to wear her CPAP at night this aM difficult to arouse. Withdraws to pain and resists eye opening. Vitals stable concerned sister Norma by the bedside Objective Active Medications: Acetaminophen (Tylenol Tab*) 650 mg PO Q4H PRN PRN Reason: FEVER/PAIN Al Hydrox/Mg Hydrox/Simethicone (Maalox Plus*) 30 ml PO Q6H PRN PRN Reason: INDIGESTION Albuterol/Ipratropium (Duoneb (Albuterol 2.5 Mg/Ipratropium 0.5 Mg)) 1 neb INH Q4H PRN PRN Reason: SOB/WHEEZING Diltiazem HCl (Cardizem Cd Cap*) 180 mg PO DAILY [facility] Last Admin: 05/04/18 09:12 Dose: 180 mg Docusate Sodium (Colace Cap*) 100 mg PO BID [facility] Last Admin: 05/04/18 21:44 Dose: 100 mg Enoxaparin Sodium (Lovenox(*)) 80 mg SUBCUT Q12H [facility] Last Admin: 05/05/18 06:07 Dose: 80 mg Fluorometholone Acetate (Fml 0.1% Opth.Susp*) 1 drop BOTH EYES BID [facility] Stop: 05/09/18 09:01 Last Admin: 05/04/18 21:45 Dose: 1 drop Metoprolol Succinate (Toprol Xl Tab*) 200 mg PO BEDTIME [facility] Last Admin: 05/04/18 21:45 Dose: 200 mg Polyvinyl Alcohol (Polyvinyl Alcohol 1.4% Opth*) 1 drop BOTH EYES Q2HR PRN PRN Reason: DRY EYES Spironolactone (Aldactone Tab*) 25 mg PO DAILY [facility] Last Admin: 05/04/18 09:12 Dose: 25 mg Warfarin Sodium (Coumadin Tab(*)) 5 mg PO DAILY@1700 [facility]; Protocol Last Admin: 05/04/18 18:25 Dose: 5 mg Zolpidem Tartrate (Ambien Tab*) 5 mg PO BEDTIME PRN PRN Reason: INSOMNIA Last Admin: 05/03/18 20:40 Dose: 5 mg Vital Signs - 8 hr 05/05/18 05/05/18 05/05/18 04:16 07:35 08:00 Temperature 98 F 98.3 F Pulse Rate 59 59 70 Respiratory 18 18 18 Rate Blood Pressure 104/87 129/58 (mmHg) O2 Sat by Pulse 100 97 98 Oximetry Oxygen Devices in Use Now: Nasal Cannula Appearance: 87 yo F, lying in bed in nAD, nonverbal, does not follw commands, withdraws to pin equally in all extremities. Puplis reactive to light b/l , eyelids closed thightly, resists eye openeing Eyes: No Scleral Icterus, PERRLA Ears/Nose/Mouth/Throat: NL Teeth, Lips, Gums, Mucous Membranes Moist Neck: NL Appearance and Movements; NL JVP, Trachea Midline Respiratory: Symmetrical Chest Expansion and Respiratory Effort, - - scant bibasiliar wheezes and crackles Cardiovascular: - - RRR Abdominal: NL Sounds; No Tenderness; No Distention, No Hepatosplenomegaly Lymphatic: No Cervical Adenopathy Extremities: No Clubbing, Cyanosis, - - trace pedal edema b/l Skin: No Nodules or Sclerosis Neurological: - - withdraws to pain, Babinski neg b/l, face symmetrical Result Diagrams: 05/04/18 05:32 05/05/18 09:22 Microbiology and Other Data: Microbiology 05/02/18 17:15 Influenza Types A,B Antigen - Final Nasopharyngeal Specimen received for Influenza A/B Molecular testing Assess/Plan/Problems-Billing Assessment: 87 yo f with h/o chronic A. fib, s/p AV node ablation and subsequent paced who presents with acute resp failure on CPAP(weaned off in ED) - Patient Problems (1) Lethargy Comment: pt responds to pain. ABG shows slight resp acidosis. suspect it is due to a ambination that she received Remeron lasy night for the fist time(was restless the nigth prior, wanted to go home) and did not wear her CPAP will place CPAP Consult neurology CT brain pending. Ammonia mildly elevated. Pt does not appear to have hepatic encephalopathy, but will order a dose of lactulose once awake enough to take PO (2) Acute hypoxemic respiratory failure Comment: due to acute diastolic CHF and bronchospasm likely related to viral infection dyspnea is improving will cont home Aldactone (increased to daily dose), hold Lasix for now due to increased BUN today cont Prednisone for bronchospasm (3) Acute diastolic CHF (congestive heart failure) Comment: Echo shows EF 50% and mid-mod MR, mild (4) Chest pain Comment: Pt c/o CP with exertion on 05/03-possible the pt has ischemic heart disease that precipitated CHF(although trops are neg) chemical stress test 05/04/18 low risk (5) Atrial fibrillation Comment: chronic, with normal (at admission) INR. Cont Cartia and Toprol XL Pt stated that she takes all her meds as prescribed. According to d/w DR. Schmitz pt's has mod demnetia , although her INR had be therapeutic in the past. It appears thst she stoped taking her med probably 2 weeks ago and may have developed CHF due to that Bridge with lovenox for now Cont Coumadin, monitor INR (6) Bronchospasm Comment: so far no evidence of bacterial infection. Prednisone appeared to make pt more confused and was stopped on 05/04/18 Cont nebs prn (7) Physical deconditioning Comment: pt is very deconditioned and I am no sure if she will be able to return to independent living PT/OT ordered (8) DVT prophylaxis Comment: Lovenox till INR therapeutic (9) Dementia Comment: as per d/w Dr. Schmitz pt's baseline mini mental status exam is 15 out of 30 points. Placed in a SW consult for HCP determination and possible placement (10) MED (obstructive sleep apnea) Comment: pt had been refusing to use CPAP Status and Disposition: inpatient
[2018-05-05 10:33] LABS: TSH (Thyroid Stimulating Horm) 5.87 mcIU/mL (0.34-5.60)
[2018-05-05] MEDS: Fluorometholone 0.1% OPTH.SUS* 5 ML BTL BOTH EYES SCH ×2 (11:11→20:48)
[2018-05-05] MEDS: Diltiazem CD CAP* 180 MG PO SCH (11:11)
[2018-05-05] MEDS: Spironolactone TAB* 25 MG PO SCH (11:11)
[2018-05-05] MEDS: Docusate CAP* 100 MG PO SCH ×2 (11:11→20:48)
--- NOTE | 2018-05-05 11:55 | CONSULT ---
Subjective Date of Service: 05/05/18 Interval History: Ms. Carrero is an 87 yo female with PMH significant for diastolic CHF, a fib, pacemaker, HTN and mitral regurgitation. She presented to the emergency room with acute respiratory failure, she was able to be weaned off the CPAP and to nasal cannula in the emergency room. She was admitted for bronchospasm, acute CHF, and acute hypoxic respiratory failure. She is noted to have decreased responsiveness this morning and ABGs are pending at this time. According to NSG staff she had a fall resulting in an abrasion to her right buttocks. Patient seen and examined at bedside. Family History: Unchanged from Admission Social History: Unchanged from Admission Past Medical History: Unchanged from Admission Review of Systems - Measurements Intake and Output: Intake and Output Last 24 Hours 05/03/18 05/04/18 05/05/18 05/06/18 06:59 06:59 06:59 06:59 Intake Total 0 305 0 Output Total 0 0 Balance 0 305 0 Weight 169 lb 6.4 oz 167 lb 1.6 oz 170 lb 6.4 oz Intake: Oral 0 305 0 Output: Urine 0 0 Other: Estimated Void Large Large # Bowel Movements 0 # Voids 1 - Review of Systems General Comments: Unable to perform ROS at this time as patient is unresponsive. Objective Active Medications: Acetaminophen (Tylenol Tab*) 650 mg PO Q4H PRN Reason: FEVER/PAIN Al Hydrox/Mg Hydrox/Simethicone (Maalox Plus*) 30 ml PO Q6H PRN Reason: INDIGESTION Albuterol/Ipratropium (Duoneb (Albuterol 2.5 Mg/Ipratropium 0.5 Mg)) 1 neb INH Q4H PRN Reason: SOB/WHEEZING Diltiazem HCl (Cardizem Cd Cap*) 180 mg PO DAILY [facility] Docusate Sodium (Colace Cap*) 100 mg PO BID [facility] Enoxaparin Sodium (Lovenox(*)) 80 mg SUBCUT Q12H [facility] Fluorometholone Acetate (Fml 0.1% Opth.Susp*) 1 drop BOTH EYES BID [facility] Stop: 05/09/18 09:01 Metoprolol Succinate (Toprol Xl Tab*) 200 mg PO BEDTIME [facility] Polyvinyl Alcohol (Polyvinyl Alcohol 1.4% Opth*) 1 drop BOTH EYES Q2HR PRN Reason: DRY EYES Spironolactone (Aldactone Tab*) 25 mg PO DAILY [facility] Warfarin Sodium (Coumadin Tab(*)) 5 mg PO DAILY@1700 [facility]; Protocol Zolpidem Tartrate (Ambien Tab*) 5 mg PO BEDTIME PRN Reason: INSOMNIA Vital Signs - 8 hr 05/05/18 05/05/18 05/05/18 04:16 07:35 08:00 Temperature 98 F 98.3 F Pulse Rate 59 59 70 Respiratory 18 18 18 Rate Blood Pressure 104/87 129/58 (mmHg) O2 Sat by Pulse 100 97 98 Oximetry Oxygen Devices in Use Now: Nasal Cannula Appearance: NAD, laying in bed Skin: - - See skin note below Neurological: - - Unresponsive Result Diagrams: 05/06/18 05:03 05/07/18 06:57 Microbiology and Other Data: Microbiology 05/02/18 17:15 Influenza Types A,B Antigen - Final Nasopharyngeal Specimen received for Influenza A/B Molecular testing Skin Deviation Note - Skin Deviation Findings Right buttock - Small open area measuring 1.1 cm x 1 cm x 0.1 cm. The wound base is pink. The surrounding skin is intact. There is some ecchymosis to the surrounding skin. Assessment/Plan: Ms. Carrero is an 87 yo female with PMH significant for diastolic CHF, a fib, pacemaker, HTN and mitral regurgitation. She presented to the emergency room with acute respiratory failure, she was able to be weaned off the CPAP and to nasal cannula in the emergency room. She was admitted for bronchospasm, acute CHF, and acute hypoxic respiratory failure. 1. Right buttock open area. Suspect this is an abrasion from her fall. There may also be a component of a deep tissue injury. Recommend applying barrier cream to protect the skin. Frequent turning and repositioning. Provide incontinence care as needed. 2. Fall. Fall precautions. Supportive care. 3. Diet. Heart healthy diet. 4. Code Status. Full Code status. 5. Disposition. Inpatient. Disposition per primary medicine team. TIME SPENT: Time for this wound consultation was 20 minutes and 10 minutes was spent with the patient assessing, measuring and photographing the wound. Wound Problem/Plan Is Patient a Wound Clinic Patient: No Attending: Darline Blanc
--- NOTE | 2018-05-05 14:18 | CONS ---
CC: Dr. Schmitz; Dr. Winston CONSULTATION REPORT: DATE OF CONSULT: 05/05/18 PRIMARY CARE PROVIDER: Dr. Schmitz. GEOGRAPHIC INFORMATION SYSTEM SURVEYOR: Dr. Winston. REASON FOR CONSULT: Altered mental status. HISTORY OF PRESENT ILLNESS: Ms. Carrero is an 87-year-old female with a complicated medical history including diastolic heart failure, history of atrial fibrillation status post ablation and pacer placement, hypertension, mitral regurge, who was unable to provide me any history at this time. I was able to speak with her treating physician as well as review her chart. She was brought to the ER on 05/03/18 due to acute shortness of breath. She apparently has been given a CPAP, but does not wear it per the notes. She was able to be weaned off of CPAP in the ER and stabilized despite her age and health problems, she lives with her 97- year- old sister and they are independent. The older sister had noted that she was having problems with shortness of breath for 2 weeks. The sister was in the room today and mentioned to me that she had fallen about a year ago and since that time she has had some trouble "that is when all her problems began." She also notes that she occasionally will have swelling in her right leg, which has resolved. It is reported that the patient does wear her CPAP at night , but she has been refusing it here. She was admitted to the hospital with acute respiratory failure likely secondary to a viral illness and bronchospasms. She was given Lasix. She was also noted to be subtherapeutic on her INR and she was to be continued on Toprol XL as well as Cartia XT. Yesterday, it was noted that she was on her way out of the bathroom when she fell. Apparently, she landed on her buttocks and hit the upper part of her back and the back of her head on the shower wall. She was doing okay afterwards and apparently was nonfocal, but a CT scan of the head was checked, which showed no acute changes. Per the treating physician and the nurses, she was very alert and oriented yesterday. She is able to walk with a walker. She was not somnolent and interactive. She fell asleep last night and her Ambien was held, but she did get a dose of Remeron for the first time last night. This morning, she was difficult to arouse, her sister notes that she is not normally like this. The nurses note that this is a significant change. Her examination waxed and waned per the primary physician. She at times would open her eyes, she withdrew to pain x4, she was moving all extremities at times, she would hold her arm above her head, she did not let it fall. Other time, she was flaccid and would not move her arms or legs. She forcefully closed her eyes at times, was not speaking at all, but occasionally would respond to stimuli and voice. Based on this, she had another brain CT done this morning, which showed no acute intracranial pathology, no evidence of bleed. ABGs done this morning show a pH of 7.32, pCO2 of 53, pO2 of 40, O2 saturation of 68.8%. Her ammonia was also noted to be elevated at 60. She has had no other medication changes overnight other than the mirtazapine. When I arrived this morning, she was somnolent, but would arouse at times, but not able to give me any meaningful history. The sister at the bedside is very hard of hearing, but was able to provide some supplemental history as noted above. PAST MEDICAL HISTORY: As noted. CURRENT MEDICATIONS: Include: 1. Cardizem. 2. Colace. 3. Lovenox 80 mg subcu q.12 hours. 4. Metoprolol XL 300 mg at bedtime. 5. Spironolactone 25 mg daily. 6. Warfarin 5 mg daily. 7. Ambien 5 mg at bedtime p.r.n. She was also as noted given the dose of mirtazapine and this morning given a one time p.o. dose of lactulose. She also received dose of prednisone 50 mg on the day of admission. ALLERGIES: No known drug allergies. FAMILY HISTORY: Noncontributory. SOCIAL HISTORY: Per the chart, prior smoker, quit in the 70s. No tobacco or alcohol use. 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 Sister is her surrogate. She was advised to ambulate with a cane, but usually she ambulates without support at home, has a history of falls. REVIEW OF SYSTEMS: Her review of systems in 14 organ systems could not be completed because of her mental status. PHYSICAL EXAM: Vital Signs: Temperature of 98.3. She has been afebrile over the last 24 hours, blood pressure 143/68 to 108/76 to 110/55, heart rate of 60, respiratory rate of 14, O2 saturation is 100%. She was on BiPAP when I saw her. In general, she is a well-nourished, well-developed female who is lying in her bed, somnolent. She will awaken at times to pain and mild stimuli. She is normocephalic, atraumatic. Sclerae are anicteric. Mucous membranes are slightly dry. Oropharynx cannot be adequately assessed, she will not open her mouth. Neck appears to be supple. Kernig and Brudzinski is negative. Chest: Clear to auscultation bilaterally. Cardiovascular is irregularly irregular. Abdomen is obese, nondistended. Extremities: There is no significant clubbing or cyanosis in her legs, 1+ edema in the lower extremities bilaterally. Skin is warm and dry with scattered bruises on her left cheek. Neurologic Exam: She is somnolent, but will arouse to loud voice and also to painful stimuli in the arms and legs. She at times forcefully closes her eyes. She will not open her mouth, although she will occasionally follow simple commands, she would wiggle her toes and wiggle her fingers. She did show me 2 fingers on her right hand at one point and would not show me any fingers on her left hand and at another time, she would not follow any commands. When I held her arms above her head, she would hold them up indefinitely. She would not let them fall, other times she was completely flaccid in her arms and legs. She was not moving her legs bilaterally much, but at times would wiggle her toes. In short , her neurologic examination was waxing and waning. Her DTRs were 1+ and symmetric at the patella, ankles, she had withdraw bilaterally. DTRs in the upper extremities were 1+ and symmetric. Her pupils were equally round and reactive to light, but she forcefully closed her eyes. She seemed to have normal doll eye. Her face appears symmetric. She has markedly diminished hearing bilaterally, requiring us to yell most of the exam. She would not stick out her tongue or open her mouth. Motor exam as noted was very difficult but she at times did hold her arms above her head without any drift for 20 to 30 seconds. She withdrew her feet, but would not move her legs on command. Her tone appears to be normal at times, down at other times, flaccid, waxing and waning throughout the exam. She did withdraw to pain x4 and grimaced. STUDIES DONE DURING HER HOSPITALIZATION: Included a CT scan as noted above. She also had a nuclear cardiac stress test on 05/04/18, no definite fixed or reversible perfusion defects; assessment, low risk. She had a transthoracic echocardiogram done on 05/02/18, conclusion: Global left ventricular wall motion and contractility are within normal limits. There is normal left ventricular systolic function. The estimated ejection fraction is 55% to 60%, pacemaker wire is visualized. In the right ventricle, there is abnormal ventricular septal wall motion consistent with right ventricular pacemaker. The left atrium is severely dilated. The aortic valve leaflets are moderately thickened. There is [id number] aortic regurge, mild aortic stenosis, moderate mitral leaflet calcification, [id number] mitral regurge , trace tricuspid regurge. No significant pericardial effusion. Compared to December 2016, the LV function is the same and mild aortic stenosis is new. LABORATORY DATA: Lab work includes a basic metabolic profile significant for carbon dioxide of 36, BUN of 34, glucose of 198, calcium is 8.7, magnesium of 2.1, lactic acid of 0.9, alk phos of 60, TSH of 5.87. White count is elevated yesterday at 15. INR this morning of 1.43. Urine negative. Imaging as noted above. ASSESSMENT AND PLAN: Ms. Carrero is an 87-year-old female with a history of congestive heart failure, atrial fibrillation, status post ablation with a pacer , on Coumadin, came in subtherapeutic, currently on Lovenox bridge. She came in with respiratory failure and was improving yesterday. She apparently fell, striking her upper back and head. CT scan done at the time showed no acute changes. She went to bed last night in her usual state, responsive, moving, ambulating, talking, but last night she went to bed early and was not given her Ambien. She was however given Remeron for the first time last night. This morning she was difficult to arouse, her examination waxed and waned. In general, it is difficult to assess focality, but I at times could get her to move all extremities, I could get her to follow commands intermittently. She withdraws to pain x4, it appears that she is nonfocal, but more obtunded. She has several ongoing issues, which could be contributing to her symptoms. 1. She has a history of congestive heart failure. She has some elevated CO2, but I suspect that this is chronic in nature, with that said she is now getting respiratory support. 2. Her ammonia level is elevated, unclear why, but she is to receive lactulose. 3. She received mirtazapine for the first time last night, which I suspect she is having a reaction to and prolonged effect. I am hopeful that over the day she will improve. 4. She did fall. Repeat head CT shows no evolving bleed or stroke. Suspicion for acute intracranial process is very low. 5. She does have atrial fibrillation, on Coumadin, subtherapeutic, currently on Lovenox. Without an MRI, it is difficulty to say whether she has had a small stroke, but I see no evidence of a large stroke or evolving stroke with repeat CT scan. At this point, I would not proceed with any additional studies , I would wait and give her time to recover from the mirtazapine, which I suspect is having a prolonged effect. Unfortunately, we will be unable to do an MRI. I would continue to support her respiratory function, avoid any sedating medications like Ambien and would hold the mirtazapine. I will continue to follow her closely and make further recommendations as necessary. Thank you for the opportunity to participate in the care of this very interesting patient. [id number]/[facility] #: [id number] JASMEET
[2018-05-05] MEDS: Warfarin TAB(*) 5 MG PO SCH (17:46)
[2018-05-05] MEDS: Metoprolol Succinate XL TAB* 200 MG TAB.XL PO SCH (20:48)
[2018-05-06 05:10] LABS: ABS Basophils 0 10^3/ul (0-0.2); ABS Eosinophils 0 10^3/ul (0-0.6); ABS Lymphocytes 0.9 10^3/ul (1.0-4.8); ABS Monocytes 0.8 10^3/ul (0-0.8); ABS Neutrophils 6.4 10^3/ul (1.5-7.7); ABS Nucleated RBC 0 10^3/ul; Eosinophil % 0.5 %; Hematocrit 38 % (33-41); Hemoglobin 12.4 g/dL (12.0-16.0); Lymphocyte % 11.4 %; Mean Corpuscular HGB Conc 33 g/dL (31-36); Mean Corpuscular Hemoglobin 30 pg (27-31); Mean Corpuscular Volume 91 fL (80-97); Mean Platelet Volume 7.3 fL (7.4-10.4); Nucleated Red Blood Cells % 0; Platelet Count 235 10^3/uL (150-450); Red Cell Distribution Width 15 % (10.5-15); White Blood Count 8.2 10^3/uL (3.5-10.8)
[2018-05-06 05:15] LABS: INR 1.71 (0.77-1.02)
[2018-05-06] MEDS: Enoxaparin(*) 80 MG/0.8 ML SYR SUBCUT SCH ×2 (05:58→17:41)
[2018-05-06] MEDS: Docusate CAP* 100 MG PO SCH ×2 (08:55→21:13)
[2018-05-06] MEDS: Spironolactone TAB* 25 MG PO SCH (08:56)
[2018-05-06] MEDS: Fluorometholone 0.1% OPTH.SUS* 5 ML BTL BOTH EYES SCH ×2 (08:56→21:13)
[2018-05-06] MEDS: Diltiazem CD CAP* 180 MG PO SCH (08:56)
[2018-05-06 09:56] LABS: Free T4 0.88 ng/dL (0.61-1.12)
[2018-05-06] MEDS ORDERED: Albuterol HFA INHALER* 8 gm MDI INH PRN (15:45)
--- NOTE | 2018-05-06 15:54 | PN ---
Subjective Date of Service: 05/06/18 Interval History: Pt was walking with no 02 and 02 sats dropped to 86 on RA. Pt 's breathing is improving. Still very [place], very forgetful. Seen with sister Norma by the bedside Objective Active Medications: Acetaminophen (Tylenol Tab*) 650 mg PO Q4H PRN PRN Reason: FEVER/PAIN Al Hydrox/Mg Hydrox/Simethicone (Maalox Plus*) 30 ml PO Q6H PRN PRN Reason: INDIGESTION Albuterol (Ventolin Hfa Inhaler*) 1 puff INH Q4H PRN PRN Reason: SOB/WHEEZING Albuterol/Ipratropium (Duoneb (Albuterol 2.5 Mg/Ipratropium 0.5 Mg)) 1 neb INH Q4H PRN PRN Reason: SOB/WHEEZING Diltiazem HCl (Cardizem Cd Cap*) 180 mg PO DAILY [facility] Last Admin: 05/06/18 08:56 Dose: 180 mg Docusate Sodium (Colace Cap*) 100 mg PO BID [facility] Last Admin: 05/06/18 08:55 Dose: 100 mg Enoxaparin Sodium (Lovenox(*)) 80 mg SUBCUT Q12H [facility] Last Admin: 05/06/18 05:58 Dose: 80 mg Fluorometholone Acetate (Fml 0.1% Opth.Susp*) 1 drop BOTH EYES BID [facility] Stop: 05/09/18 09:01 Last Admin: 05/06/18 08:56 Dose: 1 drop Metoprolol Succinate (Toprol Xl Tab*) 200 mg PO BEDTIME [facility] Last Admin: 05/05/18 20:48 Dose: 200 mg Polyvinyl Alcohol (Polyvinyl Alcohol 1.4% Opth*) 1 drop BOTH EYES Q2HR PRN PRN Reason: DRY EYES Spironolactone (Aldactone Tab*) 25 mg PO DAILY [facility] Last Admin: 05/06/18 08:56 Dose: 25 mg Warfarin Sodium (Coumadin Tab(*)) 5 mg PO DAILY@1700 [facility]; Protocol Last Admin: 05/05/18 17:46 Dose: 5 mg Zolpidem Tartrate (Ambien Tab*) 5 mg PO BEDTIME PRN PRN Reason: INSOMNIA Last Admin: 05/03/18 20:40 Dose: 5 mg Vital Signs - 8 hr 05/06/18 05/06/18 05/06/18 07:56 08:00 12:06 Temperature 98.0 F 98.5 F Pulse Rate 59 60 Respiratory 20 20 16 Rate Blood Pressure 149/66 107/50 (mmHg) O2 Sat by Pulse 99 94 Oximetry 05/06/18 13:34 Temperature Pulse Rate Respiratory Rate Blood Pressure (mmHg) O2 Sat by Pulse 94 Oximetry Oxygen Devices in Use Now: Nasal Cannula Appearance: 87 yo F in nAD, AAOx2 Eyes: No Scleral Icterus, PERRLA Ears/Nose/Mouth/Throat: NL Teeth, Lips, Gums, Mucous Membranes Moist Neck: NL Appearance and Movements; NL JVP, Trachea Midline Respiratory: - - scant b/l mid lung wheezes Cardiovascular: NL Sounds; No Murmurs; No JVD Abdominal: NL Sounds; No Tenderness; No Distention Lymphatic: No Cervical Adenopathy Extremities: No Clubbing, Cyanosis, - - +1 p[itting pedal edema b/l Skin: No Nodules or Sclerosis Neurological: NL Muscle Strength and Tone, - - very poor memory, [place] Result Diagrams: 05/06/18 05:03 05/05/18 09:22 Microbiology and Other Data: Microbiology 05/02/18 17:15 Influenza Types A,B Antigen - Final Nasopharyngeal Specimen received for Influenza A/B Molecular testing Assess/Plan/Problems-Billing Assessment: 87 yo f with h/o chronic A. fib, s/p AV node ablation and subsequent paced who presents with acute resp failure on CPAP(weaned off in ED) - Patient Problems (1) Lethargy Comment: Suspect related to a dose of Remeron and slight resp acidosis- resolved after CPAP today back to baseline: very forgetful, [place] (2) Acute hypoxemic respiratory failure Comment: due to acute diastolic CHF and bronchospasm likely related to viral infection dyspnea is improving will cont home Aldactone (increased to daily dose), hold Lasix for now due to increased BUN today d/c prednisone, Start Albuterol MDI (3) Acute diastolic CHF (congestive heart failure) Comment: Echo shows EF 50% and mid-mod MR, mild (4) Chest pain Comment: Pt c/o CP with exertion on 05/03. chemical stress test 05/04/18 low risk (5) Atrial fibrillation Comment: chronic, with normal (at admission) INR. Cont Cartia and Toprol XL Pt stated that she takes all her meds as prescribed. According to d/w DR. Schmitz pt's has mod demnetia , although her INR had be therapeutic in the past. It appears thst she stoped taking her med probably 2 weeks ago and may have developed CHF due to that Bridge with lovenox for now Cont Coumadin, monitor INR (6) Bronchospasm Comment: so far no evidence of bacterial infection. Prednisone appeared to make pt more confused and was stopped on 05/04/18 Cont nebs prn (7) Physical deconditioning Comment: pt is very deconditioned and will got to STR at d/c (8) DVT prophylaxis Comment: Lovenox till INR therapeutic (9) Dementia Comment: as per d/w Dr. Schmitz pt's baseline mini mental status exam is 15 out of 30 points. (10) MED (obstructive sleep apnea) Comment: pt had been refusing to use CPAP, but improved compliance with encouragement Status and Disposition: inpatient HCP -gallito Juares [phone] Medically ready for discharge
[2018-05-06] MEDS: Warfarin TAB(*) 5 MG PO SCH (17:41)
[2018-05-06] MEDS: Metoprolol Succinate XL TAB* 200 MG TAB.XL PO SCH (21:13)
[2018-05-07] MEDS: Enoxaparin(*) 80 MG/0.8 ML SYR SUBCUT SCH (05:19)
[2018-05-07] MEDS ORDERED: Levothyroxine TAB* 25 MCG TAB PO SCH (06:00)
[2018-05-07 07:37] LABS: INR 1.4 (0.77-1.02)
[2018-05-07 07:52] LABS: BUN/Creatinine Ratio 47.3 (8-20); Calcium 8.7 mg/dL (8.6-10.3); EGFR African American 89.6 (>60); EGFR Non-African American 74.1 (>60); Potassium 3.9 mmol/L (3.5-5.0)
[2018-05-07] MEDS: Spironolactone TAB* 25 MG PO SCH (09:15)
[2018-05-07] MEDS: Fluorometholone 0.1% OPTH.SUS* 5 ML BTL BOTH EYES SCH (09:15)
[2018-05-07] MEDS: Docusate CAP* 100 MG PO SCH (09:15)
[2018-05-07] MEDS: Diltiazem CD CAP* 180 MG PO SCH (09:15)
--- NOTE | 2018-05-07 16:23 | DS ---
ADDENDUM NOW INCLUDED ON THIS REPORT CC: Dr. Schmitz; [facility]; Dr. Ponce * DISCHARGE SUMMARY: DATE OF ADMISSION: 05/02/18 DATE OF DISCHARGE: 05/07/18 The patient is being discharged to [facility] for further rehab. PRIMARY CARE PROVIDER: Dr. Schmitz. DISCHARGE DIAGNOSES: 1. Acute hypoxemic respiratory failure due to a combination of bronchospasm, likely due to viral illness with flu testing being negative as well as acute diastolic congestive heart failure. 2. Likely medical noncompliance due to significant dementia. 3. An episode of significant lethargy after a dose of Remeron was administered the night prior. Remeron was discontinued on this patient. 4. Mild hypothyroidism. The patient was started on Synthroid during the hospital stay. 5. An episode of chest pain with exertion on 05/03/18 with low probability cardiac stress test documented on 05/04/18. LABORATORY DATA AND STUDIES PERFORMED DURING THE HOSPITAL STAY: Included on , white blood cell count of 8.2, hemoglobin of 12.4, hematocrit of 38, and platelets of 235. INR was 1.4 on the day of discharge. On 05/07/18, sodium of 139, potassium 3.9, chloride 102, carbon dioxide 33, BUN 35, and creatinine 0.74. The patient's ammonia level was 53 on 05/06/18. TSH of 5.87, free T4 of 0.88, total T3 of 18. Troponins throughout the hospital stay was 0.03. C-reactive protein at admission was 41. Brain natriuretic peptide at admission was 904. Influenza testing was negative. Brain CT obtained on 05/05/18, impression: "No acute intracranial pathology." Nuclear medicine cardiac stress obtained on 05/04/18, impression: "No definite fixed or reversible perfusion defects. The stress test was assessed as low risk and the EF was noted to be 67% with stress." Transthoracic echocardiogram obtained on 05/02/18 showed EF of 55% to 60% with global left ventricular wall motion and contractility within normal limits. The pacemaker wire was visualized in the right ventricle. There was mild aortic stenosis and trace mitral regurgitation. There was moderate mitral leaflet calcification visualized. Most recent chest x-ray obtained on admission, impression: "Cardiomegaly with interstitial edema and bilateral pleural effusions, associated with CHF." CONSULTATIONS DURING THE HOSPITAL STAY: Included Dr. Lopez from Cardiology. The consult was obtained on 05/05/18 for the patient's lethargy and it was noted that the patient received Remeron the night prior. She also had mild respiratory acidosis and after CPAP, her lethargy resolved. MEDICATIONS AT DISCHARGE: Include: 1. Artificial tears every 2 hours p.r.n. 1 drop to bilateral eyes. 2. Cartia XT 180 mg daily. 3. Fluorometholone 0.1% ophthalmic solution 1 drop both eyes b.i.d. 4. Metoprolol succinate 200 mg bedtime. 5. Oxybutynin 10 mg daily. 6. Rosuvastatin 20 mg every other day. 7. Coumadin 5 mg daily. 8. Albuterol inhaler 1 inhalation every 4 hours p.r.n. 9. DuoNeb every 4 hours p.r.n. 10. Colace 100 mg b.i.d. p.r.n. 11. Levothyroxine 25 mg daily. 12. Aldactone 25 mg daily. The significant medication change was starting the levothyroxine which is a new medication. Aldactone was increased to 25 mg daily from every other day as outpatient. The patient was also placed on nebulizers and albuterol inhaler, which is new for bronchospasm. At discharge, the patient recommended to have a next INR checked on 05/10/18 and her Coumadin as stated 5 mg a day for the time being. Her goal INR is 2.3. The patient's TSH needs to be rechecked in approximately 4 to 8 weeks. The patient was tested on levothyroxine during her hospital stay. The patient is also requested to continue CPAP during sleep nightly for obstructive sleep apnea. PAST MEDICAL HISTORY: 1. At least moderate dementia. 2. History of chronic diastolic CHF, on Aldactone every other day prior to her current hospital stay. 3. History of chronic atrial fibrillation, status post AV brittany ablation and pacemaker placement. 4. History of hypertension. 5. History of mild to moderate mitral regurgitation. HOSPITALIZATION COURSE: Janelle Carrero is an 87-year-old female who is under the care of her 97-year-old sister, Norma. The women left together. They both are very hard of hearing and Janelle has more problems with dementia. She was brought in by her sister, Norma, for problems with breathing. Apparently, although the sisters do not really remember how long it has been going on, it had been going on at least for 2 weeks. The patient's INR was also at 1 and Janelle was supposed to be on Coumadin. As per my discussion with the patient's primary care provider, Dr. Schmitz, the patient had been directed it previously. It was suspected that Janelle stopped taking her medications sometime in the past 2 weeks and developed congestive heart failure. She had been on Aldactone as outpatient. She was admitted for acute hypoxemic respiratory failure. She was noted to have significant bronchospasm and initially was placed on steroids , later on was weaned off. She was placed on nebulizer treatments and albuterol inhaler with good results. By the time of discharge, the patient was liberated from her oxygen. During the hospital stay, it became apparent that the patient is very deconditioned and her memory is very poor. She underwent Physical Therapy and Occupational Therapy evaluation and was deemed to be a good candidate for short- term rehabilitation. It was also noted that the patient does not have a healthcare proxy and Social Work consult was requested. The patient's niece, Blanquita, was deemed the healthcare proxy by both the sisters. Blanquita agreed with the patient's placement in a penitentiary for rehab. During the hospital stay, the patient had an episode when she was irritable at night. At that time, Remeron was used at a one time dose. The patient was very difficult to arouse the very next day. It also was apparent that the patient refused to have her CPAP placed on that night. The patient was noted to have mild respiratory acidosis and Dr. Lopez was asked to evaluate the patient from neurologic standpoint. I was noted that the patient likely has a combination of respiratory acidosis since not on CPAP while asleep after Remeron. Remeron was discontinued. The patient's lethargy resolved after her CPAP was used and that did not recur. The patient's TSH was noted to be slightly elevated and the patient was started on levothyroxine during the hospital stay. Recommendation to recheck TSH in 4 to 8 weeks. The patient's Coumadin was restarted during the hospital stay and her INR on the day of discharge was 1.4. It is recommended for the patient to continue on Coumadin at 5 mg and to recheck her INR on 05/10/18. Her goal INR is 2.2 to 3 due to history of atrial fibrillation. At discharge, the patient is still significantly forgetful and has problems with understanding of what is happening. The patient's niece, Blanquita, was agreeable and thankful for the patient's placement in short-term rehabilitation and Norma also agrees with the patient being placed. The patient is going to be discharged to [facility] today with recommendation to follow up with the primary care physician there. PHYSICAL EXAMINATION AT THE TIME OF DISCHARGE: Blood pressure of 155/58, heart rate of 60 and regular, respiratory rate 18, oxygen saturation 95% on room air, temperature of 97.6. General: The patient is a very pleasant 87-year-old female who is in no acute distress. The patient is alert and oriented to self and occasionally she is able to tell me that she is in the hospital. HEENT: Head: Atraumatic, normocephalic. Eyes: Pupils are equal and reactive to light and accommodation. Oropharynx clear. Mucosa moist. Neck: Supple. No JVD. No bruits bilaterally. Cardiovascular: Regular rate and rhythm. No murmur. Respiratory: Coarse wheezes in bilateral mid lung, much improved from prior. Abdomen: Soft and nontender. Bowel sounds are present in all 4 quadrants. Extremities: There is trace bilateral pedal edema. Pulses are +2 bilaterally. No clubbing or cyanosis. Neuro Evaluation: Speech clear. Cranial nerves II through XII grossly intact. Motor strength is 5/5 bilaterally. Please also note that the patient occasionally has dysarthric speech and that is chronic. Please note that this is a short summary of the patient's hospital stay. Please refer to further medical records for details. TIME SPENT: Approximately 45 minutes was spent on the patient's discharge. ADDENDUM: Please note that once the patient was preparing to get on the stretcher to go to [facility], she fell down on her knees. She was being transferred without the assistance she required at this point as per my discussion with the patient's nurse. I evaluated the patient. She complained of no knee pain. She apparently slipped to her knees only. She did not hit her head. The joints were evaluated and the mobility was not impaired. There was no evidence of contusions or lacerations. The patient is confused at baseline and she requires repetitive reorientation. I discussed that with the nursing cranberry farm supervisor at [facility], and the patient will be transferred to [facility] for further rehab. CONDITION ON DISCHARGE: Stable. [id number]/CPS #: [id number]/CPS #: [id number] MTDCharles
[2018-05-07 16:58] VITALS: BP 128/91
--- NOTE | 2018-05-08 00:37 | DS ---
DISCHARGE SUMMARY: ADDENDUM: Please note that once the patient was preparing to get on the stretcher to go to [facility], she fell down on her knees. She was being transferred without the assistance she required at this point as per my discussion with the patient's nurse. I evaluated the patient. She complained of no knee pain. She apparently slipped to her knees only. She did not hit her head. The joints were evaluated and the mobility was not impaired. There was no evidence of contusions or lacerations. The patient is confused at baseline and she requires repetitive reorientation. I discussed that with the nursing supervisor inspection room at [facility], and the patient will be transferred to [facility] for further rehab. CONDITION ON DISCHARGE: Stable. [id number]/CPS #: [id number] JASMEET
== END 2018-05-07 16:35 | DRG 291 ==
LOC: ED 14:32 → MEDTELE 16:47 → OBSVTOIN 05-03 11:09 → MEDTELE 05-04 20:22
PROVIDERS: ADMIT Internal Medicine; ATTEND Internal Medicine
PROC: 5A09357 Assistance with Respiratory Ventilation, Less than 24 Consecutive Hours, Continuous Positive Airway Pressure (ICD-10-PCS; 2018-05-03)
PROC: 4A12XM4 Monitoring of Cardiac Stress, External Approach (ICD-10-PCS; principal; 2018-05-04)
DX: I11.0 Hypertensive heart disease with heart failure (principal); J96.01 Acute respiratory failure with hypoxia; I48.2 Chronic atrial fibrillation; I44.7 Left bundle-branch block, unspecified; I50.33 Acute on chronic diastolic (congestive) heart failure; F03.90 Unspecified dementia, unspecified severity, without behavioral disturbance, psychotic disturbance, mood disturbance, and anxiety; I08.0 Rheumatic disorders of both mitral and aortic valves; H91.90 Unspecified hearing loss, unspecified ear; G47.33 Obstructive sleep apnea (adult) (pediatric); E03.9 Hypothyroidism, unspecified; Z95.0 Presence of cardiac pacemaker; Z97.4 Presence of external hearing-aid; Z72.89 Other problems related to lifestyle; Z87.891 Personal history of nicotine dependence; Z91.14 Patient's other noncompliance with medication regimen; Z79.01 Long term (current) use of anticoagulants; R53.83 Other fatigue; E87.2 Acidosis; W18.30XA Fall on same level, unspecified, initial encounter; Y92.238 Other place in hospital as the place of occurrence of the external cause; T43.025A Adverse effect of tetracyclic antidepressants, initial encounter; Y92.239 Unspecified place in hospital as the place of occurrence of the external cause
CPT/HCPCS: 36415; 36600; 70450; 71045; 78452; 80048; 80053; 81003; 82140; 82803; 83605; 83735; 83880; 84439; 84443; 84479; 84484; 85025; 85610; 86140; 93005; 93017; 93306; 94660; 99285; A9270-GY; A9502; G8978-GP-CK; G8979-GP-CI; G8987-GO-CK; G8988-GO-CI; J0280; J1650; J1940; J2785; J2930; J7512

== ENCOUNTER 2018-05-28 17:09 | Emergency (ER) | payer MEDICARE ==
--- NOTE | 2018-05-28 17:40 | ED ---
Lower Extremity - HPI Summary HPI Summary: 87 yo female presents from [facility] via ambulance accompanied by her aunt. Pt has dementia at baseline, thus the history is provided by her aunt. Aunt tells me that pt has been complaining about left hip pain for the last few weeks. Has been in PT for this, but recently PT said that there is not much more they can do for her. I called and spoke to [facility] and verified the above. They also mentioned that PT ordered an XR of pt's left hip today and found there to be a fracture - thus referring her to the ED. Pt is ambulatory without assistance at baseline. Currently denies hip pain, abdominal pain, dysuria. 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 Hx From Patient Unobtainable Due To: Dementia Pain Intensity: 0 - Allergies/Home Medications Allergies/Adverse Reactions: Allergies Allergy/AdvReac Type Severity Reaction Status Date / Time No Known Allergies Allergy Verified 11/14/15 16:07 Home Medications: Home Medications Acetaminophen TAB* [Tylenol TAB*] 650 mg PO Q6H PRN 05/28/18 [History Confirmed 05/28/18] Dextran 70/Hypromellose [Genteal Tears 0.1-0.3 %] 1 drop BOTH EYES Q2HR PRN [History Confirmed 05/28/18] Docusate CAP* [Colace Cap*] 100 mg PO BID PRN 05/28/18 [History Confirmed ] Levothyroxine TAB* [Synthroid TAB*] 25 mcg PO DAILY 05/28/18 [History Confirmed 05/28/18] Metoprolol Tartrate TAB* [Lopressor TAB*] 200 mg PO BEDTIME 05/28/18 [History Confirmed 05/28/18] Oxybutynin TAB* [Ditropan TAB*] 10 mg PO DAILY 05/28/18 [History Confirmed 05/28] diPHENhydraMINE PO* [Benadryl PO 25 MG TAB*] 12.5 mg PO Q8HR PRN 05/28/18 [ History Confirmed 05/28/18] dilTIAZem HCl [Diltiazem 12Hr ER] 180 mg PO DAILY 05/28/18 [History Confirmed ] oxyCODONE TAB* [Roxycodone TAB 5 mg*] 2.5 mg PO Q8H PRN 05/28/18 [History Confirmed 05/28/18] PMH/Surg Hx/FS Hx/Imm Hx Endocrine/Hematology History: Denies: Hx Diabetes Cardiovascular History: Reports: Hx Angina, Hx Atrial Fibrillation, Hx Congestive Heart Failure, Hx Hypercholesterolemia, Hx Hypertension, Hx Pacemaker /ICD Denies: Hx Myocardial Infarction Respiratory History: Reports: Other Respiratory Problems/Disorders - wears cpap at night Denies: Hx Asthma, Hx Chronic Obstructive Pulmonary Disease (COPD) History: Denies: Hx Chronic Renal Failure Sensory History: Reports: Hx Contacts or Glasses, Hx Hearing Aid Opthamlomology History: Reports: Hx Contacts or Glasses - Cancer History Hx Chemotherapy: No Hx Radiation Therapy: No - Immunization History Date of Tetanus Vaccine: upt o date Date of Influenza Vaccine: upto date Infectious Disease History: No Infectious Disease History: Denies: Traveled Outside the [place] in Last 30 Days - Family History Known Family History: Positive: None Family History: neg: Breast CA - Social History Alcohol Use: Weekly Hx Substance Use: No Substance Use Type: Reports: None Hx Tobacco Use: No Smoking Status (MU): Never Smoked Tobacco Review of Systems Constitutional: Negative Cardiovascular: Negative Respiratory: Negative Gastrointestinal: Negative Genitourinary: Negative Positive: Other - Left hip pain Skin: Negative Neurological: Negative Psychological: Normal All Other Systems Reviewed And Are Negative: Yes Physical Exam - Summary Physical Exam Summary: GENERAL: NAD. WDWN. No pain distress. SKIN: No rashes, sores, lesions, or open wounds. NECK: Supple. Nontender. No lymphadenopathy. CHEST: No accessory muscle use. Breathing comfortably and in no distress. CV: Pulses intact. Cap refill <2seconds ABDOMEN: Soft. NTTP. No distention or guarding. Bowel sounds present MSK: Mild TTP at left trochanter. FROM at left hip with mild pain during adduction and flexion. NEURO: Alert. PSYCH: Age appropriate behavior. Triage Information Reviewed: Yes Vital Signs On Initial Exam: Initial Vitals Temp Pulse Resp BP Pulse Ox 97.8 F 68 16 171/83 92 05/28/18 17:10 05/28/18 17:10 05/28/18 17:10 05/28/18 17:10 05/28/18 17:10 Vital Signs Reviewed: Yes Diagnostics - Vital Signs Vital Signs Temp Pulse Resp BP Pulse Ox 05/28/18 17:10 97.8 F 68 16 171/83 92 - Laboratory Lab Statement: Any lab studies that have been ordered have been reviewed, and results considered in the medical decision making process. Lower Extremity Course/Dx - Course Course Of Treatment: CT hip: IMPRESSION: 1. No visible acute fracture. Of note , the bones are diffusely demineralized. which limits evaluation of fine bony detail. 2. Subacute to chronic LEFT greater trochanter fracture. 3. Subcutaneous edema versus contusion lateral to left hip. Discussed results with pt and family. Aunt is unsure if she can transport her back to [facility] safely, therefore will transport pt via wheelchair van. Results of CT will be provided to [facility]. Advised to f/u with Orthopedics for further evaluation of chronic hip pain/fracture. - Diagnoses Provider Diagnoses: Hip fracture, left Discharge - Sign-Out/Discharge Documenting (check all that apply): Patient Departure Patient Received Moderate/Deep Sedation with Procedure: No - Discharge Plan Condition: Stable Disposition: HOME Referrals: Krista Schmitz MD [Primary Care Provider] - Renard Robin MD [Medical Doctor] - If Needed Additional Instructions: If you develop a fever, shortness of breath, chest pain, new or worsening symptoms - please call your PCP or go to the ED. Your blood pressure was high at todays visit. Please see your primary provider within 4 weeks for recheck and re-evaluation. 1) The imaging of this hip showed a subacute/chronic fracture of the LEFT trochanter. This is likely the cause of the intermittent pain in the area. 2) Please follow up with Orthopedics if this pain continues to give her trouble - Billing Disposition and Condition Condition: STABLE Disposition: Home
[2018-05-28 21:29] VITALS: BP 168/97
== END 2018-05-28 22:00 | disposition home or self-care (01) ==
LOC: ED 17:09
DX: M84.459A Pathological fracture, hip, unspecified, initial encounter for fracture (principal); I10 Essential (primary) hypertension; I50.9 Heart failure, unspecified; E78.00 Pure hypercholesterolemia, unspecified; Z95.0 Presence of cardiac pacemaker
CPT/HCPCS: 72192; 99283

== ENCOUNTER 2018-06-09 02:06 | Emergency (ER) | payer MEDICARE ==
--- NOTE | 2018-06-09 02:20 | ED ---
HPI Chest Pain - HPI Summary HPI Summary: An 87 y/o female brought in by [facility] 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 She reports that she has been falling recently and had a skin tear on her left arm from a fall. While staff were tending to her, the patient complained of chest pain. She denies any current CP, SOB or nausea. EMS report a Hx of dementia. 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 Initial Severity: Mild Current Severity: Mild Chest Pain Location: Diffuse Chest Pain Radiates: No Character: Other: - none Aggravating Factor(s): Nothing Alleviating Factor(s): Nothing Associated Signs and Symptoms: Negative: Shortness of Breath, Nausea - Additional Pertinent History Primary Care Physician: DANTE - Allergy/Home Medications Allergies/Adverse Reactions: Allergies Allergy/AdvReac Type Severity Reaction Status Date / Time No Known Allergies Allergy Verified 06/09/18 02:33 Home Medications: Home Medications Calcium Carbonate/Vitamin D3 [Calcium 600 + Vit D Tablet] 1 each PO DAILY [History Confirmed 06/09/18] PMH/Surg Hx/FS Hx/Imm Hx Endocrine/Hematology History: Denies: Hx Diabetes Cardiovascular History: Reports: Hx Angina, Hx Atrial Fibrillation, Hx Congestive Heart Failure, Hx Hypercholesterolemia, Hx Hypertension, Hx Pacemaker /ICD Denies: Hx Myocardial Infarction Respiratory History: Reports: Other Respiratory Problems/Disorders - wears cpap at night Denies: Hx Asthma, Hx Chronic Obstructive Pulmonary Disease (COPD) History: Denies: Hx Chronic Renal Failure Sensory History: Reports: Hx Contacts or Glasses, Hx Hearing Aid Opthamlomology History: Reports: Hx Contacts or Glasses - Cancer History Hx Chemotherapy: No Hx Radiation Therapy: No - Immunization History Date of Tetanus Vaccine: upt o date Date of Influenza Vaccine: upto date - Family History Known Family History: Positive: Other Family History: neg: Breast CA - Social History Alcohol Use: Weekly Hx Substance Use: No Substance Use Type: Reports: None Hx Tobacco Use: No Smoking Status (MU): Never Smoked Tobacco Review of Systems Positive: Chest Pain - 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 No murmurs. Normal distal pulses in tibial and radial bilaterally. Abdomen: Soft, nontender, normal active bowel sounds present Musculoskeletal: Normal, Strength/ROM Intact Neurological:Somewhat confused but able to answer questions appropriately, denies any CP. Psychiatric: affect is normal, does not appear anxious or depressed Triage Information Reviewed: Yes Vital Signs Reviewed: Yes Diagnostics - Laboratory Result Diagrams: 06/09/18 02:24 06/09/18 02:24 Lab Statement: Any lab studies that have been ordered have been reviewed, and results considered in the medical decision making process. - Radiology CXR Radiology Interpretation Completed By: ED Physician Summary of Radiographic Findings: no acute process. Pending official imaging report. - EKG 03:30 Cardiac Rate: Other Rate - Likely paced rhythm at 60 bpm Summary of EKG Findings: EKG at 03:30 showed a likely paced rhythm at 60 bpm. Re-Evaluation - Re-Evaluation First Eval Re-Evaluation Time: 04:17 Change: Unchanged Comment: Discussed results Chest Pain Course/Dx - Course Course Of Treatment: An 87 y/o female brought in by [facility] 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 She reports that she has been falling recently and had a skin tear on her left arm from a fall. While staff were tending to her, the patient complained of chest pain. She denies any current CP, SOB or nausea. Hx of dementia. The physical exam revealed that the patient is somewhat confused but able to answer questions appropriately, denies any CP. EKG at 03:30 showed a likely paced rhythm at 60 bpm. Bloodwork and chemistries obtained and are WNL. CXR showed no acute process. The patient will be discharged home and follow up with her PCP. She is agreeable with this plan. - Diagnoses Provider Diagnoses: Chest pain Discharge - Sign-Out/Discharge Documenting (check all that apply): Patient Departure - DC Patient Received Moderate/Deep Sedation with Procedure: No - Discharge Plan Condition: Good Disposition: HOME Patient Education Materials: Noncardiac Chest Pain (ED) Referrals: Roberta Ponce, DO [Primary Care Provider] - - Billing Disposition and Condition Condition: GOOD Disposition: Home - Attestation Statements Document Initiated by Enrrique: Yes Documenting Scribe: Sudeep Ruelas Provider For Whom Enrrique is Documenting (Include Credential): Polo Garg MD Scribe Attestation: ISudeep, gastonibed for Polo Garg MD on 06/12/18 at 0601. Scribe Documentation Reviewed: Yes Provider Attestation: The documentation as recorded by the Sudeep hutchinson accurately reflects the service I personally performed and the decisions made by me, Polo Garg MD Status of Scribe Document: Viewed
[2018-06-09 02:34] LABS: ABS Basophils 0.1 10^3/ul (0-0.2); ABS Eosinophils 0.1 10^3/ul (0-0.6); ABS Lymphocytes 0.9 10^3/ul (1.0-4.8); ABS Monocytes 1.3 10^3/ul (0-0.8); ABS Neutrophils 8.6 10^3/ul (1.5-7.7); ABS Nucleated RBC 0 10^3/ul; Eosinophil % 0.6 %; Hematocrit 38 % (33-41); Hemoglobin 12.6 g/dL (12.0-16.0); Lymphocyte % 7.9 %; Mean Corpuscular HGB Conc 33 g/dL (31-36); Mean Corpuscular Hemoglobin 30 pg (27-31); Mean Corpuscular Volume 90 fL (80-97); Mean Platelet Volume 7.4 fL (7.4-10.4); Nucleated Red Blood Cells % 0; Platelet Count 216 10^3/uL (150-450); Red Blood Count 4.21 10^6 /uL (3.70-4.87); Red Cell Distribution Width 15 % (10.5-15); White Blood Count 10.9 10^3/uL (3.5-10.8)
[2018-06-09 02:51] LABS: Albumin 3.9 g/dL (3.2-5.2); Albumin/Globulin Ratio 1.4 (1-3); BUN/Creatinine Ratio 24.7 (8-20); Calcium 9.1 mg/dL (8.6-10.3); EGFR Non-African American 75.2 (>60); Globulin 2.8 g/dL (2-4); Potassium 4.7 mmol/L (3.5-5.0); Total Bilirubin 1.7 mg/dL (0.2-1.0); Total Protein 6.7 g/dL (6.4-8.9)
[2018-06-09 02:53] LABS: Troponin I 0.01 ng/mL (<0.04)
--- NOTE | 2018-06-09 07:29 | UC ---
- Progress Note Progress Note: Second troponin 0.01 - unchanged Notified pt - agree with plan Will discharge with paperwork prepped by Dr. Garg Course/Dx - Diagnoses Provider Diagnoses: Chest pain Discharge - Sign-Out/Discharge Documenting (check all that apply): Patient Departure, Receiving Sign-Out Receiving patient FROM: Polo Garg Patient Received Moderate/Deep Sedation with Procedure: No - Discharge Plan Condition: Good Disposition: HOME Patient Education Materials: Noncardiac Chest Pain (ED) Referrals: Roberta Ponce DO [Primary Care Provider] - - Billing Disposition and Condition Condition: GOOD Disposition: Home
[2018-06-09 07:49] VITALS: BP 145/88
--- NOTE | 2018-06-09 10:36 | PN ---
Progress Note - Progress Note Date of Service: 06/08/18 Note: Final radiology read for CXR: Chronic finding. No change in treatment needed at this time. IMPRESSION: SMALL LEFT PLEURAL EFFUSION. R2
== END 2018-06-09 07:49 | disposition home or self-care (01) ==
LOC: ED 02:06
DX: R07.9 Chest pain, unspecified (principal); E78.00 Pure hypercholesterolemia, unspecified; I10 Essential (primary) hypertension; Z95.0 Presence of cardiac pacemaker
CPT/HCPCS: 36415; 71045; 80053; 83605; 84484; 85025; 93005; 99283

== ENCOUNTER 2018-06-10 02:35 | Emergency (ER) | payer MEDICARE ==
[2018-06-10] MEDS ORDERED: NS 0.9% 1000 ML** 1,000 ML IV ONE (03:56)
--- NOTE | 2018-06-10 04:00 | ED ---
Complex/Multi-Sys Presentation - HPI Summary HPI Summary: Pt is an 87 y/o female brought in by EMS who presents to the ED c/o falls. She was sent here from [facility] due to increased falls. Pt has multiple bruises. She denies any CP, SOB, abdominal pain, or calf pain. Pt was here 4 days ago for her recent falls. PMHx dementia. - History Of Current Complaint Chief Complaint: EDFall Time Seen by Provider: 06/10/18 03:42 Hx Obtained From: Patient, Medical Records Onset/Duration: Gradual Onset, Still Present Severity Currently: None Location: Negative Aggravating Factor(s): Nothing Alleviating Factor(s): Nothing Associated Signs And Symptoms: Negative: SOB, Chest Pain, Abdominal Pain Related History: Other - here 4 days ago - Allergies/Home Medications Allergies/Adverse Reactions: Allergies Allergy/AdvReac Type Severity Reaction Status Date / Time No Known Allergies Allergy Verified 06/09/18 02:33 PMH/Surg Hx/FS Hx/Imm Hx Endocrine/Hematology History: Denies: Hx Diabetes Cardiovascular History: Reports: Hx Angina, Hx Atrial Fibrillation, Hx Congestive Heart Failure, Hx Hypercholesterolemia, Hx Hypertension, Hx Pacemaker /ICD Denies: Hx Myocardial Infarction Respiratory History: Reports: Other Respiratory Problems/Disorders - wears cpap at night Denies: Hx Asthma, Hx Chronic Obstructive Pulmonary Disease (COPD) History: Denies: Hx Chronic Renal Failure Sensory History: Reports: Hx Contacts or Glasses, Hx Hearing Aid Opthamlomology History: Reports: Hx Contacts or Glasses - Cancer History Hx Chemotherapy: No Hx Radiation Therapy: No - Immunization History Date of Tetanus Vaccine: upt o date Date of Influenza Vaccine: upto date Infectious Disease History: No Infectious Disease History: Denies: Traveled Outside the [place] in Last 30 Days - Family History Known Family History: Positive: Other - neg: Breast CA - Social History Alcohol Use: Weekly Hx Substance Use: No Substance Use Type: Reports: None Hx Tobacco Use: No Smoking Status (MU): Never Smoked Tobacco Review of Systems Negative: Chest Pain Negative: Shortness Of Breath Negative: Abdominal Pain Negative: Myalgia - BLE Positive: Bruising All Other Systems Reviewed And Are Negative: Yes Physical Exam - Summary Physical Exam Summary: Appearance: well appearing, no pain distress, incontinent Skin: warm, dry, reflects adequate perfusion, bruise on posterior right shoulder , bruise inferior to left scapula Head/face: normal Eyes: EOMI, NATI ENT: mucous membranes dry Neck: supple, non-tender Respiratory: mild expiratory wheezes, breath sounds distant Cardiovascular: RRR, pulses symmetrical Abdomen: non-tender, soft Bowel Sounds: present Musculoskeletal: normal, strength/ROM intact Neuro: normal, sensory motor intact, A&Ox3 Triage Information Reviewed: Yes Vital Signs On Initial Exam: Initial Vitals Temp Pulse Resp BP Pulse Ox 97.2 F 60 18 154/74 100 06/10/18 02:40 06/10/18 02:40 06/10/18 02:40 06/10/18 02:40 06/10/18 02:40 Vital Signs Reviewed: Yes Diagnostics - Vital Signs Vital Signs Temp Pulse Resp BP Pulse Ox 06/10/18 03:00 60 19 100 06/10/18 02:43 60 22 154/74 100 06/10/18 02:40 97.2 F 60 18 154/74 100 - Laboratory Result Diagrams: 06/10/18 04:01 06/10/18 04:01 Lab Statement: Any lab studies that have been ordered have been reviewed, and results considered in the medical decision making process. Complex Multi-Symp Course/Dx Course Of Treatment: Patient with dementia and history of frequent falls presents with increased confusion. She is conversant with me but is dry appearing. She is found to have UTI which is treated with antibiotics. She was hydrated here as well. I discussed her case with the hospitalist who also covers her senior care. He wishes to have her discharged back on oral antibiotics and they will follow her up there. There is no evidence for head trauma today. - Diagnoses Differential Diagnoses/HQI/PQRI: Metabolic Abnormality, Sepsis, Urinary Tract Infection Provider Diagnoses: UTI (urinary tract infection), Dementia, Frequent falls Discharge - Sign-Out/Discharge Documenting (check all that apply): Patient Departure - Discharge Patient Received Moderate/Deep Sedation with Procedure: No - Discharge Plan Condition: Improved Disposition: LONG TERM FACILITY Prescriptions: Cephalexin CAP* [Keflex CAP*] 500 mg PO TID #21 cap Patient Education Materials: Urinary Tract Infection in Women (DC) Referrals: Roberta Ponce DO [Primary Care Provider] - Additional Instructions: Call with fever, increased confusion, worse, new symptoms or other concerns. Patient remains of fall risk. Take precautions to ensure safety. - Billing Disposition and Condition Condition: IMPROVED Disposition: Group Home Facility - Attestation Statements Document Initiated by Quinnibheron: Yes Documenting Scribe: Christin Diaz Provider For Whom Enrrique is Documenting (Include Credential): Wilder Cornejo MD Scribe Attestation: Christin Vergara, scribed for Wilder Cornejo MD on 06/10/18 at 0609. Scribe Documentation Reviewed: Yes Provider Attestation: The documentation as recorded by the Christin hutchinson accurately reflects the service I personally performed and the decisions made by Wilder alonso MD Status of Scribe Document: Viewed
[2018-06-10 04:07] LABS: ABS Basophils 0.1 10^3/ul (0-0.2); ABS Eosinophils 0.1 10^3/ul (0-0.6); ABS Lymphocytes 0.7 10^3/ul (1.0-4.8); ABS Monocytes 1.3 10^3/ul (0-0.8); ABS Neutrophils 8.3 10^3/ul (1.5-7.7); ABS Nucleated RBC 0 10^3/ul; Eosinophil % 0.9 %; Hematocrit 37 % (35-47); Hemoglobin 12.2 g/dL (12.0-16.0); Lymphocyte % 6.8 %; Mean Corpuscular HGB Conc 33 g/dL (31-36); Mean Corpuscular Hemoglobin 30 pg (27-31); Mean Corpuscular Volume 90 fL (80-97); Nucleated Red Blood Cells % 0; Platelet Count 213 10^3/uL (150-450); Red Blood Count 4.08 10^6 /uL (3.70-4.87); Red Cell Distribution Width 16 % (10.5-15); White Blood Count 10.5 10^3/uL (3.5-10.8)
[2018-06-10 04:46] LABS: BUN/Creatinine Ratio 21.5 (8-20); Calcium 8.9 mg/dL (8.6-10.3); EGFR African American 83.1 (>60); EGFR Non-African American 68.7 (>60); Potassium 4.5 mmol/L (3.5-5.0)
[2018-06-10 04:47] LABS: Urine Appearance Cloudy; Urine Bacteria Absent (Absent); Urine Bilirubin Negative (Negative); Urine Blood 1+ (Negative); Urine Color Amber; Urine Glucose Negative (Negative); Urine Ketones Negative (Negative); Urine Nitrite Positive (Negative); Urine Protein Negative (Negative); Urine Red Blood Cell Trace(0-2/hpf) (Absent); Urine Specific Gravity 1.015 (1.010-1.030); Urine Squamous Epithelial Cell Present (Absent); Urine Urobilinogen Positive (Negative); Urine White Blood Cell 3+(>20/hpf) (Absent)
[2018-06-10] MEDS ORDERED: cefTRIAXone(*) 1 GM in NS 0.9% 50 ML* 50 ML IVPB ONE (04:57)
[2018-06-10 06:30] VITALS: BP 146/73
== END 2018-06-10 06:30 ==
LOC: ED 02:35
DX: N39.0 Urinary tract infection, site not specified (principal); F03.90 Unspecified dementia, unspecified severity, without behavioral disturbance, psychotic disturbance, mood disturbance, and anxiety; W01.0XXA Fall on same level from slipping, tripping and stumbling without subsequent striking against object, initial encounter; Z91.81 History of falling; Y92.129 Unspecified place in nursing home as the place of occurrence of the external cause; I11.0 Hypertensive heart disease with heart failure; I50.9 Heart failure, unspecified; I48.91 Unspecified atrial fibrillation; E78.00 Pure hypercholesterolemia, unspecified; Z95.810 Presence of automatic (implantable) cardiac defibrillator
CPT/HCPCS: 36415; 80048; 81003; 81015; 85025; 87077; 87086; 87186; 96361; 96365; 96366; 99283; J0696

== ENCOUNTER 2018-07-30 01:17 | Emergency (ER) | payer MEDICARE ==
--- NOTE | 2018-07-30 01:41 | ED ---
Adult Trauma - HPI Summary HPI Summary: This pt is an 87 y/o female presenting to [facility] via EMS from [facility] for a fall today. Pt had an unwitnessed fall today and sustained a laceration to the right occipital area. It is unknown if pt had LOC. Denies fever, chest pain, SOB , nausea, vomiting. Pt has hx of dementia. HPI IS LIMITED DUE TO LEVEL 5 CAVEAT - pt with dementia. - History of Current Complaint Chief Complaint: EDFall Stated Complaint: FALLS PER EMS Time Seen by Provider: 07/30/18 01:30 Hx Obtained From: Patient Hx From Patient Unobtainable Due To: Dementia Mechanism of Injury: Fall Loss of Consciousness: unsure Onset/Duration: Traumatic, Still Present Current Severity: None Pain Intensity: 0 Pain Scale Used: 0-10 Numeric Location: Head Aggravating Factor(s): Nothing Alleviating Factor(s): Nothing Associated Signs & Symptoms: Negative: SOB, Chest Pain, Fever, Nausea/Vomiting - Additional Pertinent History Primary Care Physician: DANTE - Allergy/Home Medications Allergies/Adverse Reactions: Allergies Allergy/AdvReac Type Severity Reaction Status Date / Time No Known Allergies Allergy Verified 06/09/18 02:33 PMH/Surg Hx/FS Hx/Imm Hx Endocrine/Hematology History: Denies: Hx Diabetes Cardiovascular History: Reports: Hx Angina, Hx Atrial Fibrillation, Hx Congestive Heart Failure, Hx Hypercholesterolemia, Hx Hypertension, Hx Pacemaker /ICD Denies: Hx Myocardial Infarction Respiratory History: Reports: Other Respiratory Problems/Disorders - wears cpap at night Denies: Hx Asthma, Hx Chronic Obstructive Pulmonary Disease (COPD) History: Denies: Hx Chronic Renal Failure Sensory History: Reports: Hx Contacts or Glasses, Hx Hearing Aid Opthamlomology History: Reports: Hx Contacts or Glasses - Cancer History Hx Chemotherapy: No Hx Radiation Therapy: No - Immunization History Date of Tetanus Vaccine: upt o date Date of Influenza Vaccine: upto date Infectious Disease History: No Infectious Disease History: Denies: Traveled Outside the [place] in Last 30 Days - Family History Known Family History: Positive: Other - NEGATIVE: Breast CA - Social History Alcohol Use: Weekly Hx Substance Use: No Substance Use Type: Reports: None Hx Tobacco Use: No Smoking Status (MU): Never Smoked Tobacco Review of Systems - ROS Summary Review of Systems Summary: ROS IS LIMITED DUE TO LEVEL 5 CAVEAT - pt with dementia Negative: Fever, Chills Negative: Chest Pain Negative: Shortness Of Breath Negative: Vomiting, Nausea Skin: Other - POS: head laceration All Other Systems Reviewed And Are Negative: No Physical Exam - Summary Physical Exam Summary: VITAL SIGNS: Reviewed. GENERAL: Patient is a well-developed and nourished female who is lying comfortable in the stretcher. Patient is not in any acute respiratory distress. HEAD AND FACE: 3 mm laceration over the right occipital area, no bleeding. EYES: PERRLA, EOMI x 2, No injected conjunctiva, no nystagmus. EARS: Hearing grossly intact. Ear canals and tympanic membranes are within normal limits. MOUTH: Oropharynx within normal limits. NECK: Supple, trachea is midline, no adenopathy, no JVD, no carotid bruit. No c- spine tenderness, neck with full ROM. Neck is supple. CHEST: Symmetric, no tenderness at palpation LUNGS: Clear to auscultation bilaterally. No wheezing or crackles. CVS: Regular rate and rhythm, S1 and S2 present, no murmurs or gallops appreciated. ABDOMEN: Soft, non-tender. No signs of distention. No rebound no guarding, and no masses palpated. Bowel sounds are normal. EXTREMITIES: FROM in all major joints, no edema, no cyanosis or clubbing. NEURO: Alert and oriented x 3. No acute neurological deficits. Speech is normal and follows commands. SKIN: Dry and warm Triage Information Reviewed: Yes Vital Signs On Initial Exam: Initial Vitals Temp Pulse Resp BP Pulse Ox 98.2 F 60 16 142/102 95 07/30/18 01:21 07/30/18 01:21 07/30/18 01:21 07/30/18 01:21 07/30/18 01:21 Vital Signs Reviewed: Yes Completion Of Physical Exam Limited Due To: Dementia - Esmond Coma Scale Best Eye Response: 4 - Spontaneous Best Motor Response: 6 - Obeys Commands Best Verbal Response: 5 - Oriented Coma Scale Total: 15 Diagnostics - Vital Signs Vital Signs Temp Pulse Resp BP Pulse Ox 07/30/18 01:21 98.2 F 60 16 142/102 95 - Laboratory Lab Statement: Any lab studies that have been ordered have been reviewed, and results considered in the medical decision making process. - CT Brain CT CT Interpretation Completed By: Radiologist Summary of CT Findings: IMPRESSION: 1. There is stable age-related diffuse cerebral volume loss and chronic microvascular ischemic disease. 2. No acute intracranial pathology. Dr. Mike has reviewed this report. Adult Trauma Course/Dx - Course Assessment/Plan: Pt is an 87 y/o female who presents to the ED via EMS from [facility] for a fall today. Pt had an unwitnessed fall today and sustained a laceration to the right occipital area. It is unknown if pt had LOC. Denies fever, chest pain, SOB, nausea, vomiting. Pt has hx of dementia. On exam pt has a small 3 mm laceration over the right occipital area, no bleeding. Brain CT shows 1. There is stable age-related diffuse cerebral volume loss and chronic microvascular ischemic disease. 2. No acute intracranial pathology. Pt will be discharged home with follow up from PCP in 2-3 days. Return to ED precautions were given. - Diagnoses Provider Diagnoses: Head injury, Laceration of scalp Discharge - Sign-Out/Discharge Documenting (check all that apply): Patient Departure - Discharge home Patient Received Moderate/Deep Sedation with Procedure: No - Discharge Plan Condition: Stable Disposition: HOME Patient Education Materials: Laceration (ED), Head Injury (ED) Referrals: [facility] [Outside] Additional Instructions: Follow up with your primary care provider in 2-3 days. If you don't have one, follow up with [facility]. RETURN TO THE ED IMMEDIATELY FOR WORSENING OR CONCERNING SYMPTOMS. - Attestation Statements Document Initiated by Scribe: Yes Documenting Scribe: Muriel Sanders Provider For Whom Scribe is Documenting (Include Credential): Milan Mike MD Scribe Attestation: Muriel Vergara, scribed for Milan Mike MD on 07/30/18 at 0324. Status of Scribe Document: Ready
[2018-07-30] MEDS ORDERED: Albuterol/Ipratropium NEB.SOL* Albuterol 2.5 MG/Ipratropium 0.5 MG 3 ML ONE (03:16)
[2018-07-30] MEDS ORDERED: Albuterol/Ipratropium NEB.SOL* Albuterol 2.5 MG/Ipratropium 0.5 MG 3 ML INH ONE (03:19)
[2018-07-30 03:29] VITALS: BP 123/68
== END 2018-07-30 04:04 | disposition home or self-care (01) ==
LOC: ED 01:17
DX: S01.01XA Laceration without foreign body of scalp, initial encounter (principal); I48.91 Unspecified atrial fibrillation; I50.9 Heart failure, unspecified; I11.0 Hypertensive heart disease with heart failure; W19.XXXA Unspecified fall, initial encounter
CPT/HCPCS: 70450; 99284; A9270-GY

== ENCOUNTER 2018-08-04 01:20 | Emergency (ER) | payer MEDICARE ==
--- NOTE | 2018-08-04 03:04 | ED ---
Shortness of Breath - HPI Summary HPI Summary: LEVEL 5 CAVEAT: HPI LIMITED DUE TO PATIENT CONDITION, UNRELIABLE NARRATOR. 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 At bedside, patient states, "I'm taking someone to room 347." Per nurse's note, patient's O2 sat was 90-91% per EMS when arriving at scene. Patient seen at [facility] on 07/30/18 s/p fall. - History of Current Complaint Chief Complaint: EDShortnessOfBreath Time Seen by Provider: 08/04/18 02:55 Hx Obtained From: Patient, EMS, Medical Records - Allergy/Home Medications Allergies/Adverse Reactions: Allergies Allergy/AdvReac Type Severity Reaction Status Date / Time No Known Allergies Allergy Verified 06/09/18 02:33 PMH/Surg Hx/FS Hx/Imm Hx Previously Healthy: No Endocrine/Hematology History: Denies: Hx Diabetes Cardiovascular History: Reports: Hx Angina, Hx Atrial Fibrillation, Hx Congestive Heart Failure, Hx Hypercholesterolemia, Hx Hypertension, Hx Pacemaker /ICD Denies: Hx Myocardial Infarction Respiratory History: Reports: Other Respiratory Problems/Disorders - wears cpap at night Denies: Hx Asthma, Hx Chronic Obstructive Pulmonary Disease (COPD) History: Denies: Hx Chronic Renal Failure Sensory History: Reports: Hx Contacts or Glasses, Hx Hearing Aid Opthamlomology History: Reports: Hx Contacts or Glasses - Cancer History Hx Chemotherapy: No Hx Radiation Therapy: No - Immunization History Date of Tetanus Vaccine: upt o date Date of Influenza Vaccine: upto date Immunizations Up to Date: Yes Infectious Disease History: No Infectious Disease History: Denies: Traveled Outside the [place] in Last 30 Days - Family History Known Family History: Positive: Other - NEGATIVE: Breast CA - Social History Occupation: Retired Lives: [facility] [employer] Alcohol Use: Weekly Hx Substance Use: No Substance Use Type: Reports: None Hx Tobacco Use: No Smoking Status (MU): Never Smoked Tobacco Review of Systems - ROS Summary Review of Systems Summary: LEVEL 5 CAVEAT: ROS LIMITED DUE TO PATIENT CONDITION, UNRELIABLE NARRATOR Positive: Shortness Of Breath All Other Systems Reviewed And Are Negative: No Physical Exam - Summary Physical Exam Summary: Constitutional: Well-developed, Well-nourished, Alert. (-) Distressed Skin: Warm, Dry. Large hematoma on anterior LLE, ecchymosis on L thigh. HENT: Normocephalic; Atraumatic Eyes: Conjunctiva normal Neck: Musculoskeletal ROM normal neck. (-) JVD, (-) Stridor, (-) Tracheal deviation Cardio: Rhythm regular, rate normal, Heart sounds normal; Intact distal pulses; The pedal pulses are 2+ and symmetric. Radial pulses are 2+ and symmetric. (-) Murmur Pulmonary/Chest wall: (-) Respiratory distress, (-) Wheezes. Severe coarse crackles on L. Prolonged expiratory phase. Abd: Soft, (-) tenderness, (-) Distension, (-) Guarding, (-) Rebound Musculoskeletal: Trace pitting edema in RLE, 1+ pitting edema on LLE. Lymph: (-) Cervical adenopathy Neuro: Alert, Oriented x3 Psych: Mood and affect Normal Triage Information Reviewed: Yes Vital Signs On Initial Exam: Initial Vitals Temp Pulse Resp BP Pulse Ox 97.9 F 60 20 135/67 96 08/04/18 01:25 08/04/18 01:25 08/04/18 01:25 08/04/18 01:25 08/04/18 01:25 Vital Signs Reviewed: Yes Diagnostics - Vital Signs Vital Signs Temp Pulse Resp BP Pulse Ox 08/04/18 01:25 97.9 F 60 20 135/67 96 - Laboratory Result Diagrams: 08/04/18 04:36 08/04/18 04:36 Lab Statement: Any lab studies that have been ordered have been reviewed, and results considered in the medical decision making process. - Radiology CXR Radiology Interpretation Completed By: ED Physician Summary of Radiographic Findings: Small R pleural effusion otherwise no acute change. - EKG 0346 Summary of EKG Findings: EKG shows junctional rhythm at a rate of 60 bpm. No WI. Prolonged QRS with a LBBB. Nml QTc. Overall: LBBB and non-specific EKG. 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 Patient is a poor historian. O2 sat in room is 91%. PE finds severe coarse crackles on L, prolonged expiratory phase; trace pitting edema in RLE, 1+ pitting edema on LLE; a large hematoma on anterior LLE, ecchymosis on L thigh. Lab work shows: elevated WBC, BUN: 38, BUN/C ratio: 43.7, total bili: 2.0, alk phosphatase: 121, BNP: 642. UA results show 1+ protein, positive nitrates, 1+ leukocyte esterase, 3+ wBC, 2+ RBC, 3+ bacteria, hyaline casts, squamous epithelia present. CXR shows small R pleural effusion otherwise no acute change. EKG shows junctional rhythm at a rate of 60 bpm. No WI. Prolonged QRS with a LBBB. Nml QTc. Overall: LBBB and non-specific EKG. Will discharge patient home with Cefdinir, and to f/u with PCP. - Diagnoses Provider Diagnoses: UTI (urinary tract infection) Discharge - Sign-Out/Discharge Documenting (check all that apply): Patient Departure - D/C Patient Received Moderate/Deep Sedation with Procedure: No - Discharge Plan Condition: Stable Disposition: HOME Prescriptions: Cefdinir [Cefdinir 300 MG CAP] 300 mg PO BID #14 capsule Patient Education Materials: Urinary Tract Infection in Women (ED) Print Language: EMIRATI Referrals: No Primary Care Phys,NOPCP [Primary Care Provider] - Additional Instructions: Follow-up with your primary care doctor. - Attestation Statements Document Initiated by Scribe: Yes Documenting Scribe: Patricia Hernandez Provider For Whom Scribe is Documenting (Include Credential): Dr. Modesta Hua MD Scribe Attestation: Patricia Vergara, scribed for Dr. Modesta Hua MD on at 0659. Status of Scribe Document: Ready
[2018-08-04 04:54] LABS: ABS Basophils 0.1 10^3/ul (0-0.2); ABS Lymphocytes 0.8 10^3/ul (1.0-4.8); ABS Neutrophils 9.3 10^3/ul (1.5-7.7); Eosinophil % 0.4 %; Hematocrit 33 % (35-47); Hemoglobin 11.1 g/dL (12.0-16.0); Lymphocyte % 6.8 %; Mean Corpuscular HGB Conc 34 g/dL (31-36); Mean Corpuscular Hemoglobin 31 pg (27-31); Mean Corpuscular Volume 92 fL (80-97); Mean Platelet Volume 7.5 fL (7.4-10.4); Platelet Count 223 10^3/uL (150-450); Red Blood Count 3.54 10^6 /uL (3.70-4.87); Red Cell Distribution Width 16 % (10-15); White Blood Count 11.2 10^3/uL (3.5-10.8)
[2018-08-04 05:13] LABS: Albumin/Globulin Ratio 1.4 (1-3); BUN/Creatinine Ratio 43.7 (8-20); Calcium 9.2 mg/dL (8.6-10.3); EGFR African American 74.4 (>60); EGFR Non-African American 61.4 (>60); Globulin 2.9 g/dL (2-4); Total Protein 6.9 g/dL (6.4-8.9)
[2018-08-04 05:14] LABS: Troponin I 0.01 ng/mL (<0.04)
[2018-08-04 05:18] LABS: Potassium 5.1 mmol/L (3.5-5.0)
[2018-08-04 06:34] LABS: Urine Appearance Cloudy; Urine Bacteria 3+ (Absent); Urine Bilirubin Negative (Negative); Urine Blood Negative (Negative); Urine Color Amber; Urine Glucose Negative (Negative); Urine Ketones Negative (Negative); Urine Nitrite Positive (Negative); Urine Protein 1+(30 mg/dL) (Negative); Urine Red Blood Cell 2+(6-10/hpf) (Absent); Urine Specific Gravity 1.025 (1.010-1.030); Urine Squamous Epithelial Cell Present (Absent); Urine Urobilinogen Negative (Negative); Urine White Blood Cell 3+(>20/hpf) (Absent)
[2018-08-04] MEDS ORDERED: cefTRIAXone(*) 1 GM in NS 0.9% 50 ML* 50 ML IVPB ONE (06:35)
[2018-08-04] MEDS ORDERED: cefTRIAXone VIAL(*) 1,000 MG VIAL IM ONE (07:03)
[2018-08-04] MEDS ORDERED: Lidocaine 1%** 5 ML VIAL IM ONE (07:03)
[2018-08-04] MEDS ORDERED: cefTRIAXone VIAL(*) 1,000 MG VIAL ONE (07:05)
[2018-08-04 07:57] VITALS: BP 145/68
== END 2018-08-04 07:55 | disposition home or self-care (01) ==
LOC: ED 01:20
DX: N39.0 Urinary tract infection, site not specified (principal); R06.02 Shortness of breath; G47.33 Obstructive sleep apnea (adult) (pediatric); I10 Essential (primary) hypertension; Z95.0 Presence of cardiac pacemaker; I50.9 Heart failure, unspecified
CPT/HCPCS: 36415; 71045; 80053; 81003; 81015; 83605; 83880; 84484; 85025; 87040; 87077; 87086; 87186; 93005; 96372; 99285; J0696

== ENCOUNTER 2018-08-04 14:50 | Inpatient (IN) | payer MEDICARE ==
--- NOTE | 2018-08-04 15:43 | ED ---
Shortness of Breath - HPI Summary HPI Summary: This pt is an 87 y/o F brought in by EMS from [facility] to [facility] for SOB. The pt is a level 5 caveat and was not able to answer any questions regarding her symptoms or PMHx. - History of Current Complaint Chief Complaint: EDShortnessOfBreath Time Seen by Provider: 08/04/18 15:23 Hx Obtained From: Other: - LEVEL 5 CAVEAT Hx From Patient Unobtainable Due To: Other - LEVEL 5 CAVEAT - Allergy/Home Medications Allergies/Adverse Reactions: Allergies Allergy/AdvReac Type Severity Reaction Status Date / Time No Known Allergies Allergy Verified 06/09/18 02:33 Home Medications: Home Medications Albuterol/Ipratropium NEB.MIGUEL ÁNGEL* [Duoneb (Albuterol 2.5 MG/Ipratropium 0.5 MG)] 1 neb INH Q6H PRN 08/04/18 [History Confirmed 08/04/18] Azithromycin TAB* [Zithromax TAB (Z-CATHERINE) 250 mg #6 tabs] 250 mg PO DAILY [History Confirmed 08/04/18] Calcium Carbonate CHEW TAB* [Tums*] 500 mg PO DAILY 08/04/18 [History Confirmed 08/04/18] Diltiazem CD CAP* [Cardizem CD CAP*] 120 mg PO DAILY 08/04/18 [History Confirmed 08/04/18] Magnesium Hydroxide LIQ* [Milk of Magnesia LIQ*] 30 ml PO DAILY PRN 08/04/18 [ History Confirmed 08/04/18] Magnesium Oxide TAB* [MagOx 400 TAB*] 400 mg PO DAILY 08/04/18 [History Confirmed 08/04/18] Oxybutynin TAB* [Ditropan TAB*] 10 mg PO QAM 08/04/18 [History Confirmed ] Rosuvastatin (NF) [Crestor] 20 mg PO EVERY OTHER DAY 08/04/18 [History Confirmed 08/04/18] predniSONE TAB* [Deltasone TAB*] 50 mg PO DAILY 08/04/18 [History Confirmed ] PMH/Surg Hx/FS Hx/Imm Hx Previously Healthy: No Endocrine/Hematology History: Denies: Hx Diabetes Cardiovascular History: Reports: Hx Angina, Hx Atrial Fibrillation, Hx Congestive Heart Failure, Hx Hypercholesterolemia, Hx Hypertension, Hx Pacemaker /ICD Denies: Hx Myocardial Infarction Respiratory History: Reports: Other Respiratory Problems/Disorders - wears cpap at night Denies: Hx Asthma, Hx Chronic Obstructive Pulmonary Disease (COPD) History: Denies: Hx Chronic Renal Failure Sensory History: Reports: Hx Contacts or Glasses, Hx Hearing Aid Opthamlomology History: Reports: Hx Contacts or Glasses - Cancer History Hx Chemotherapy: No Hx Radiation Therapy: No - Immunization History Date of Tetanus Vaccine: upt o date Date of Influenza Vaccine: upto date Infectious Disease History: No Infectious Disease History: Denies: Traveled Outside the [place] in Last 30 Days - Family History Known Family History: Positive: Other - NEGATIVE: Breast CA - Social History Alcohol Use: None Hx Substance Use: No Substance Use Type: Reports: None Hx Tobacco Use: No Smoking Status (MU): Never Smoked Tobacco Review of Systems - ROS Summary Review of Systems Summary: A FULL ROS IS UNOBTAINABLE DUE TO THE PT BEING A LEVEL 5 CAVEAT. Positive: Shortness Of Breath All Other Systems Reviewed And Are Negative: No Physical Exam - Summary Physical Exam Summary: PT IS A LEVEL 5 CAVEAT DUE TO HER CONFUSION Appearance: Well-appearing, Well-nourished, lying in bed comfortably Skin: Warm, dry, no obvious rash Eyes: sclera anicteric, no conjunctival pallor ENT: mucous membranes moist, pharynx appears normal Neck: Supple, nontender Respiratory: Clear to auscultation, mild tachypnea, expiatory wheezing profusely Cardiovascular: Normal S1, S2. No murmurs. Normal distal pulses in tibial and radial bilaterally. Abdomen: Soft, nontender, normal active bowel sounds present Musculoskeletal: Normal, Strength/ROM Intact Neurological: A&O but confused, awake and alert, mentation is normal, speech is dysarthric Psychiatric: affect is normal, does not appear anxious or depressed Triage Information Reviewed: Yes Vital Signs On Initial Exam: Initial Vitals Temp Pulse Resp BP Pulse Ox 98.6 F 86 20 148/80 94 08/04/18 15:07 08/04/18 15:07 08/04/18 15:07 08/04/18 15:07 08/04/18 15:07 Vital Signs Reviewed: Yes Diagnostics - Vital Signs Vital Signs Temp Pulse Resp BP Pulse Ox 08/04/18 15:07 98.6 F 86 20 148/80 94 - Laboratory Result Diagrams: 08/05/18 10:24 08/05/18 10:24 Lab Statement: Any lab studies that have been ordered have been reviewed, and results considered in the medical decision making process. - Radiology CXR Radiology Interpretation Completed By: Radiologist Summary of Radiographic Findings: PULMONARY INTERSTITIAL EDEMA WITH SMALL LEFT PLEURAL EFFUSION. ED Physician has reviewed this report. Course/Dx - Course Course Of Treatment: THIS PT IS A LEVEL 5 CAVEAT DUE TO HER INABILITY TO ANSWER THE QUESTIONS. She has SOB starting this morning per [facility]. She had a CXR that shows PULMONARY INTERSTITIAL EDEMA WITH SMALL LEFT PLEURAL EFFUSION. She has abnormal lab values in Lactic acid of 2.5, B-Natriuretic peptide, BUN/ Creatinine ratio. [place] [facility] [place], Hospitalist, with a Dx of CHF for further evaluation. - Diagnoses Differential Diagnosis/HQI/PQRI: Positive: CHF Provider Diagnoses: CHF (congestive heart failure) - Physician Notifications Discussed Care of Patient With: Amaris Lynn Time Discussed With Above Provider: 19:01 Instructed by Provider To: Admit As Inpatient Admit/Transition Orders Completed By ED Provider: Yes Discharge - Sign-Out/Discharge Documenting (check all that apply): Patient Departure Patient Received Moderate/Deep Sedation with Procedure: No - Discharge Plan Condition: Stable Disposition: ADMITTED TO [facility] - Billing Disposition and Condition Condition: STABLE Disposition: Admitted to [facility] - Attestation Statements Document Initiated by Enrrique: Yes Documenting Scribe: Freddie Pimentel Provider For Whom Scribe is Documenting (Include Credential): Polo Garg MD Scribe Attestation: Freddie Vergara, scribed for Polo Garg MD on 08/06/18 at 0540. Scribe Documentation Reviewed: Yes Provider Attestation: The documentation as recorded by the Freddie hutchinson accurately reflects the service I personally performed and the decisions made by , Polo Garg MD Status of Scribe Document: Viewed
[2018-08-04 16:23] LABS: ABS Basophils 0.1 10^3/ul (0-0.2); ABS Lymphocytes 0.5 10^3/ul (1.0-4.8); ABS Monocytes 0.7 10^3/ul (0-0.8); ABS Neutrophils 11.5 10^3/ul (1.5-7.7); Eosinophil % 0.1 %; Hematocrit 31 % (35-47); Hemoglobin 10.5 g/dL (12.0-16.0); Lymphocyte % 3.8 %; Mean Corpuscular HGB Conc 33 g/dL (31-36); Mean Corpuscular Hemoglobin 31 pg (27-31); Mean Corpuscular Volume 92 fL (80-97); Mean Platelet Volume 7.5 fL (7.4-10.4); Platelet Count 220 10^3/uL (150-450); Red Blood Count 3.41 10^6 /uL (3.70-4.87); Red Cell Distribution Width 16 % (10-15); White Blood Count 12.8 10^3/uL (3.5-10.8)
[2018-08-04 16:35] LABS: Troponin I 0.01 ng/mL (<0.04)
[2018-08-04 16:36] LABS: Albumin 4.1 g/dL (3.2-5.2); Albumin/Globulin Ratio 1.4 (1-3); Calcium 9.5 mg/dL (8.6-10.3); EGFR African American 63.3 (>60); EGFR Non-African American 52.3 (>60); Potassium 4.5 mmol/L (3.5-5.0); Total Protein 7.1 g/dL (6.4-8.9)
[2018-08-04] MEDS ORDERED: Albuterol/Ipratropium NEB.SOL* Albuterol 2.5 MG/Ipratropium 0.5 MG 3 ML INH ONE (16:38)
[2018-08-04] MEDS ORDERED: methylPREDNISolone 125 MG* 2 ML VIAL IV ONE (16:39)
[2018-08-04 16:45] LABS: INR 1.48 (0.82-1.09)
[2018-08-04] MEDS ORDERED: Acetaminophen TAB* 325 MG PO PRN (19:02)
[2018-08-04] MEDS ORDERED: Albuterol 2.5 MG/3 ML NEB.SOL* (0.083%) INH PRN (19:02)
[2018-08-04] MEDS ORDERED: Magnesium Hydroxide LIQ* 30 ML UDC PO PRN (19:05)
[2018-08-04] MEDS ORDERED: Docusate CAP* 100 MG PO PRN (19:05)
[2018-08-04] MEDS ORDERED: Furosemide IV* 10 MG/ML VIAL (40 MG) IV ONE (19:15)
--- NOTE | 2018-08-04 21:44 | HP ---
CC: Dr. Roberta Ponce, [facility] * HISTORY AND PHYSICAL: DATE OF ADMISSION: 08/04/18 PRIMARY CARE PROVIDER: Roberta Ponce DO ATTENDING PHYSICIAN: Viri Robbins MD * (dictated by BRYANT Bermudez). CHIEF COMPLAINT: Shortness of breath. HISTORY OF PRESENT ILLNESS: Ms. Carrero is an 87-year-old female with a past medical history of dementia, diastolic heart failure, atrial fibrillation who presented to the ER today with shortness of breath. She was noted to be in the ER early this morning with shortness of breath, O2 sats 90% to 91%. She was found to have a urinary tract infection at that time. She was sent home on cefdinir, azithromycin, and prednisone. Her O2 sats continued to be low at [facility], so she returned to the ER. She is unable to provide any history due to dementia. She does not respond to questioning. Currently, she is requiring 4 L of oxygen with sats in the high 90s. She again is unable to participate in review of systems, but does not appear to have a cough during interview and examination. While in the emergency room, the patient received a full workup which included blood work revealing leukocytosis and anemia, creatinine of 1.00, lactate 2.5, elevated bilirubin, and elevated BNP. She received imaging, chest x-ray revealed pulmonary edema. The patient was given albuterol and methylprednisolone 125 IV. Hospitalist team was asked to evaluate the patient for admission. PAST MEDICAL HISTORY: 1. Diastolic heart failure, ejection fraction 55% to 60% in April 2018. 2. Atrial fibrillation. 3. Hypertension. 4. Mild to moderate mitral regurgitation. 5. Hypothyroidism. 6. Dementia. 7. Hyperlipidemia. PAST SURGICAL HISTORY: The patient is unable to provide this. HOME MEDICATIONS: 1. Acetaminophen 650 mg p.o. q.6 hours p.r.n. pain. 2. Albuterol 1 puff inhalation q.4 hours p.r.n. shortness of breath. 3. DuoNeb 1 neb inhalation q.6 hours p.r.n. shortness of breath. 4. Azithromycin 250 mg p.o. daily. 5. Calcium carbonate chew 500 mg p.o. daily. 6. Calcium carbonate/vitamin D3 one tab p.o. daily. 7. Cefdinir 300 mg p.o. b.i.d. 8. GenTeal Tears 0.1 to 0.3% one drop both eyes q.2 hours p.r.n. dry eye. 9. Diltiazem CD 120 mg p.o. daily. 10. Docusate cap 200 mg p.o. at bedtime p.r.n. constipation. 11. Fluorometholone 0.1% ophthalmic suspension 1 drop to both eyes b.i.d. 12. Levothyroxine 25 mg p.o. daily. 13. Magnesium hydroxide 30 mL p.o. daily p.r.n. constipation. 14. Magnesium oxide 400 mg p.o. daily. 15. Metoprolol tartrate 200 mg p.o. at bedtime. 16. Oxybutynin 10 mg p.o. q.a.m. 17. Prednisone 50 mg p.o. daily. 18. Rosuvastatin 20 mg p.o. every other day. 19. Spironolactone 25 mg p.o. daily. DRUG ALLERGIES: No known drug allergies. FAMILY HISTORY: Unable to obtain. SOCIAL HISTORY: Obtained from chart. No alcohol use, no tobacco use, never smoked. The patient is a resident of [facility]. According to the chart, her healthcare proxy most recent date 05/06/18 is Blanquita Rodriguez. REVIEW OF SYSTEMS: A 10-point review of systems was unobtainable due to the patient's dementia. She is unable to answer questions. PHYSICAL EXAMINATION GENERAL: Ms. Carrero is a well-developed, well-nourished, 87-year-old white female who is lying in bed. She is fidgeting with her clothes and undressing. She is yelling out frequently. She does not make eye contact or acknowledge my questions. She appears to be working somewhat to breathe, but is no acute respiratory distress. She has nasal cannula in place with oxygen at 4 L. HEENT: Oral mucous membranes appear dry. RESPIRATORY: Symmetrical chest expansion. Lungs with bibasilar rales. CARDIOVASCULAR: Regular rate and rhythm with S1, S2 present. No murmurs, rubs , clicks, or gallops. There is no JVD. ABDOMEN: Bowel sounds in all quadrants. The abdomen is flat. There appears to be no tenderness to palpation. EXTREMITIES: Skin is warm and smooth bilaterally without clubbing or cyanosis. There is trace edema to bilateral lower extremities. NEURO: The patient is awake. She is not oriented and does not respond to questioning. She does move all of her extremities. DIAGNOSTIC STUDIES AND LABORATORY DATA: Chest x-ray on 08/04/18, impression: Pulmonary interstitial edema with small left pleural effusion. Laboratory data: Leukocytosis 12.8, RBC 3.41, HGB 10.5, HCT 31. Creatinine 1.00, lactic acid 2.5. Total bilirubin 2.0. BNP 658. UA from 08/04/18, first visit, 1+ leukocyte esterase, positive nitrites, 3+ wbc. ASSESSMENT AND PLAN: Ms. Carrero is an 87-year-old female with a past medical history of dementia, diastolic heart failure, atrial fibrillation, hypertension who presented to the ER today with shortness of breath and was found to have pulmonary edema on chest x-ray. The patient will be admitted inpatient for: 1. Shortness of breath. The patient is afebrile. She does not appear to have a cough, although she is unable to participate in review of systems. She is noted to have shortness of breath requiring 4 L of oxygen to maintain sats greater than 95. She has a history of diastolic heart failure with preserved EF. Pulmonary edema noted on chest x-ray. Bibasilar rales noted on pulmonary exam. I suspect that this is acute exacerbation of heart failure. The patient is on spironolactone at [facility]. We will order 1 dose of Lasix 40 now with reassessment in the morning. I and O and daily weights ordered. 2. Urinary tract infection. The patient was seen in the ER earlier today and was noted to have positive nitrites, positive leukocyte esterase on urinalysis. She will continue treatment with ceftriaxone. 3. Diastolic heart failure. Continue metoprolol, spironolactone. 4. Atrial fibrillation. Continue diltiazem, metoprolol. The patient does not appear to be on anticoagulation. 5. Hypertension. Continue home medications. 6. Hyperlipidemia. Continue rosuvastatin. 7. Hypothyroidism. Continue levothyroxine. 8. DVT prophylaxis. According to the DVT Risk Assessment, the patient scores 3 and is noted to be high risk. She will be placed on Lovenox. 9. Code status. DNR. TIME SPENT: Approximately 60 minutes was spent on this admission, greater than half of that time was spent with the patient obtaining history, performing physical, and reviewing the plan of care. The case has been reviewed with my attending, Dr. Robbins, who is in agreement with the plan of care. BRYANT COBOS [id number]/CPS #: [id number] JASMEET
[2018-08-04] MEDS: Fluorometholone 0.1% OPTH.SUS* 5 ML BTL BOTH EYES SCH (22:20)
[2018-08-04] MEDS: Enoxaparin(*) 40 MG/0.4 ML SYR SUBCUT SCH (22:21)
[2018-08-04] MEDS: Metoprolol Tartrate TAB* 100 MG TAB PO SCH (22:22)
[2018-08-05] MEDS ORDERED: Haloperidol INJ IV/IM* 5 MG/ML AMP IV PRN (01:50)
[2018-08-05] MEDS ORDERED: Haloperidol INJ IV/IM* 5 MG/ML AMP ONE (01:54)
[2018-08-05] MEDS: Levothyroxine TAB* 25 MCG TAB PO SCH (05:46)
[2018-08-05] MEDS: cefTRIAXone(*) 1 GM in NS 0.9% 50 ML* 50 ML IVPB SCH (08:38)
[2018-08-05] MEDS: Oxybutynin TAB* 5 MG PO SCH (08:38)
[2018-08-05] MEDS: Calcium Carbonate CHEW TAB* 500 MG (TUMS) PO SCH ×2 (08:38→08:58)
[2018-08-05] MEDS: Magnesium Oxide TAB* 400 MG PO SCH (08:38)
[2018-08-05] MEDS: Calcium/Vitamin D TAB 250/125* TAB PO SCH (08:39)
[2018-08-05] MEDS: Diltiazem CD CAP* 120 MG PO SCH (08:39)
[2018-08-05] MEDS: Fluorometholone 0.1% OPTH.SUS* 5 ML BTL BOTH EYES SCH ×3 (08:39→20:06)
[2018-08-05] MEDS: Spironolactone TAB* 25 MG PO SCH (08:39)
[2018-08-05] MEDS: Albuterol HFA INHALER* 8 gm MDI INH PRN (10:22)
[2018-08-05 10:33] LABS: Hematocrit 33 % (35-47); Hemoglobin 10.9 g/dL (12.0-16.0); Mean Corpuscular HGB Conc 33 g/dL (31-36); Mean Corpuscular Hemoglobin 31 pg (27-31); Mean Corpuscular Volume 92 fL (80-97); Mean Platelet Volume 7.2 fL (7.4-10.4); Platelet Count 222 10^3/uL (150-450); Red Blood Count 3.54 10^6 /uL (3.70-4.87); Red Cell Distribution Width 16 % (10-15); White Blood Count 11.6 10^3/uL (3.5-10.8)
--- NOTE | 2018-08-05 10:39 | PN ---
Subjective Date of Service: 08/05/18 Interval History: overnight she was restless, trying to get out of bed, threw a walker at an aide , and threw stool in the bathroom. When I went to see her this morning, she was pleasant, confused (near baseline), and had no complaints. Objective Active Medications: Acetaminophen (Tylenol Tab*) 650 mg PO Q4H PRN PRN Reason: FEVER/PAIN Albuterol (Ventolin 2.5 Mg/3 Ml Neb.Nan*) 2.5 mg INH [id number] AWAKE PRN PRN Reason: sob/wheezing Albuterol (Ventolin Hfa Inhaler*) 1 puff INH Q4H PRN PRN Reason: SOB/WHEEZING Atorvastatin Calcium (Lipitor*) 40 mg PO EVERY OTHER DAY [facility] Calcium Carbonate (Tums*) 500 mg PO DAILY [facility] Last Admin: 08/05/18 08:58 Dose: Not Given Calcium/Vitamin D (Oscal D Tab 250/125*) 1 tab PO DAILY [facility] Last Admin: 08/05/18 08:39 Dose: 1 tab Diltiazem HCl (Cardizem Cd Cap*) 120 mg PO DAILY [facility] Last Admin: 08/05/18 08:39 Dose: 120 mg Docusate Sodium (Colace Cap*) 200 mg PO BEDTIME PRN PRN Reason: CONSTIPATION Enoxaparin Sodium (Lovenox(*)) 40 mg SUBCUT Q24H [facility] Last Admin: 08/04/18 22:21 Dose: 40 mg Fluorometholone Acetate (Fml 0.1% Opth.Susp*) 1 drop BOTH EYES BID [facility] Last Admin: 08/05/18 08:58 Dose: Not Given Haloperidol Lactate (Haldol Inj Iv/Im*) 4 mg IV Q4H PRN PRN Reason: AGITATION Last Admin: 08/05/18 01:58 Dose: 4 mg Ceftriaxone Sodium 1 gm/ (Sodium Chloride) 50 mls @ 200 mls/hr IVPB Q24H [facility] Last Admin: 08/05/18 08:38 Dose: 200 mls/hr Levothyroxine Sodium (Synthroid Tab*) 25 mcg PO DAILY@0600 [facility] Last Admin: 08/05/18 05:46 Dose: 25 mcg Magnesium Hydroxide (Milk Of Magnesia Liq*) 30 ml PO DAILY PRN PRN Reason: CONSTIPATION Magnesium Oxide (Magox 400 Tab*) 400 mg PO DAILY [facility] Last Admin: 08/05/18 08:38 Dose: 400 mg Metoprolol Tartrate (Lopressor Tab*) 200 mg PO BEDTIME [facility] Last Admin: 08/04/18 22:22 Dose: Not Given Oxybutynin Chloride (Ditropan Tab*) 10 mg PO QAM [facility] Last Admin: 08/05/18 08:38 Dose: 10 mg Spironolactone (Aldactone Tab*) 25 mg PO DAILY [facility] Last Admin: 08/05/18 08:39 Dose: 25 mg Vital Signs - 8 hr 08/05/18 03:02 Temperature 97.4 F Pulse Rate 59 Respiratory 28 Rate Blood Pressure 125/73 (mmHg) O2 Sat by Pulse 100 Oximetry Oxygen Devices in Use Now: Nasal Cannula Appearance: alert, well appearing elderly female who is disoriented Eyes: No Scleral Icterus Ears/Nose/Mouth/Throat: NL Teeth, Lips, Gums Neck: NL Appearance and Movements; NL JVP Respiratory: Symmetrical Chest Expansion and Respiratory Effort, Clear to Auscultation Cardiovascular: NL Sounds; No Murmurs; No JVD, - - irregular rhythm Abdominal: NL Sounds; No Tenderness; No Distention Lymphatic: No Cervical Adenopathy Extremities: - - 1+ edema b/l Neurological: - Result Diagrams: 08/05/18 10:24 08/05/18 10:24 Microbiology and Other Data: Microbiology 08/04/18 21:50 Legionella Urinary Antigen - Final Urine Negative Legionella Antigen Streptococcus pneumoniae Ag Screen - Final Negative S. pneumo Antigen 08/04/18 21:30 Nasal Screen MRSA (PCR) - Final Nasal Mrsa Not Detected Assess/Plan/Problems-Billing Assessment: This is an 87 year old woman with history of - Patient Problems (1) Acute hypoxemic respiratory failure Current Visit: No Status: Acute Code(s): J96.01 - ACUTE RESPIRATORY FAILURE WITH HYPOXIA SNOMED Code(s): 899010736 Comment: with upper airway wheezing, some pulmonary edema on CXR, and mildly elevated BNP also with leukocytosis but had been on steroids x 1 day prior to admission so unclear significance will give her an extra dose of lasix today her weight recorded yesterday is 4 lbs up from her [facility] recorded [facility] so I favor decompensated heart failure as the etiology of her hypoxia (2) Atrial fibrillation Current Visit: No Status: Acute Code(s): I48.91 - UNSPECIFIED ATRIAL FIBRILLATION SNOMED Code(s): 16982827 Comment: rate controlled on toprol and cardizem not on anticoagulation due to frequent falls (3) Dementia Current Visit: No Status: Acute Code(s): F03.90 - UNSPECIFIED DEMENTIA WITHOUT BEHAVIORAL DISTURBANCE SNOMED Code(s): 83874216 Comment: with delirium check UA
[2018-08-05 10:49] LABS: BUN/Creatinine Ratio 41.9 (8-20); Calcium 9.5 mg/dL (8.6-10.3); EGFR African American 68.8 (>60); EGFR Non-African American 56.9 (>60); Potassium 4.7 mmol/L (3.5-5.0)
[2018-08-05] MEDS: Metoprolol Tartrate TAB* 100 MG TAB PO SCH (20:06)
[2018-08-05] MEDS: Enoxaparin(*) 40 MG/0.4 ML SYR SUBCUT SCH (20:43)
[2018-08-06] MEDS: Levothyroxine TAB* 25 MCG TAB PO SCH (05:28)
[2018-08-06 06:12] LABS: Hematocrit 33 % (35-47); Hemoglobin 11.2 g/dL (12.0-16.0); Mean Corpuscular HGB Conc 33 g/dL (31-36); Mean Corpuscular Hemoglobin 31 pg (27-31); Mean Corpuscular Volume 93 fL (80-97); Mean Platelet Volume 7.5 fL (7.4-10.4); Platelet Count 265 10^3/uL (150-450); Red Blood Count 3.61 10^6 /uL (3.70-4.87); Red Cell Distribution Width 16 % (10-15); White Blood Count 18.1 10^3/uL (3.5-10.8)
[2018-08-06 06:28] LABS: BUN/Creatinine Ratio 46.7 (8-20); Calcium 9.3 mg/dL (8.6-10.3); EGFR African American 71.5 (>60); EGFR Non-African American 59.1 (>60)
[2018-08-06 07:26] LABS: ABS Basophils 0.1 10^3/ul (0-0.2); ABS Lymphocytes 0.8 10^3/ul (1.0-4.8); ABS Monocytes 1.6 10^3/ul (0-0.8); ABS Neutrophils 15.7 10^3/ul (1.5-7.7); Eosinophil % 0.1 %; Lymphocyte % 4.3 %
[2018-08-06] MEDS ORDERED: Atorvastatin* 40 MG TAB PO SCH (09:00)
[2018-08-06] MEDS: cefTRIAXone(*) 1 GM in NS 0.9% 50 ML* 50 ML IVPB SCH (10:31)
[2018-08-06] MEDS: Calcium Carbonate CHEW TAB* 500 MG (TUMS) PO SCH (10:34)
[2018-08-06] MEDS: Oxybutynin TAB* 5 MG PO SCH (10:34)
[2018-08-06] MEDS: Magnesium Oxide TAB* 400 MG PO SCH (10:34)
[2018-08-06] MEDS: Furosemide TAB* 40 MG PO SCH (10:34)
[2018-08-06] MEDS: Spironolactone TAB* 25 MG PO SCH (10:34)
[2018-08-06] MEDS: Calcium/Vitamin D TAB 250/125* TAB PO SCH (10:34)
[2018-08-06] MEDS: Diltiazem CD CAP* 120 MG PO SCH (10:34)
[2018-08-06] MEDS: Fluorometholone 0.1% OPTH.SUS* 5 ML BTL BOTH EYES SCH ×2 (10:37→21:35)
[2018-08-06] MEDS: Albuterol HFA INHALER* 8 gm MDI INH PRN (12:37)
--- NOTE | 2018-08-06 12:51 | PN ---
Subjective Date of Service: 08/06/18 Interval History: No acute events overnight WBC up to 18.1, afebrile Pt barely understandable due to dysarthria which per aide is her baseline persists at 2.5L Denies pain per previous H&P she quit smoking ~age 39. unclear how many pack years. Objective Active Medications: Acetaminophen (Tylenol Tab*) 650 mg PO Q4H PRN PRN Reason: FEVER/PAIN Albuterol (Ventolin 2.5 Mg/3 Ml Neb.Nan*) 2.5 mg INH [id number] AWAKE PRN PRN Reason: sob/wheezing Albuterol (Ventolin Hfa Inhaler*) 1 puff INH Q4H PRN PRN Reason: SOB/WHEEZING Last Admin: 08/06/18 12:37 Dose: 1 puff Atorvastatin Calcium (Lipitor*) 40 mg PO EVERY OTHER DAY [facility] Last Admin: 08/06/18 10:34 Dose: 40 mg Calcium Carbonate (Tums*) 500 mg PO DAILY [facility] Last Admin: 08/06/18 10:34 Dose: 500 mg Calcium/Vitamin D (Oscal D Tab 250/125*) 1 tab PO DAILY [facility] Last Admin: 08/06/18 10:34 Dose: 1 tab Diltiazem HCl (Cardizem Cd Cap*) 120 mg PO DAILY [facility] Last Admin: 08/06/18 10:34 Dose: 120 mg Docusate Sodium (Colace Cap*) 200 mg PO BEDTIME PRN PRN Reason: CONSTIPATION Enoxaparin Sodium (Lovenox(*)) 40 mg SUBCUT Q24H [facility] Last Admin: 08/05/18 20:43 Dose: 40 mg Fluorometholone Acetate (Fml 0.1% Opth.Susp*) 1 drop BOTH EYES BID [facility] Last Admin: 08/06/18 10:37 Dose: 1 units Furosemide (Lasix Tab*) 40 mg PO DAILY [facility] Last Admin: 08/06/18 10:34 Dose: 40 mg Haloperidol Lactate (Haldol Inj Iv/Im*) 4 mg IV Q4H PRN PRN Reason: AGITATION Last Admin: 08/05/18 01:58 Dose: 4 mg Ceftriaxone Sodium 1 gm/ (Sodium Chloride) 50 mls @ 200 mls/hr IVPB Q24H [facility] Last Admin: 08/06/18 10:31 Dose: 200 mls/hr Levothyroxine Sodium (Synthroid Tab*) 25 mcg PO DAILY@0600 [facility] Last Admin: 08/06/18 05:28 Dose: 25 mcg Magnesium Hydroxide (Milk Of Magnvaishali Liq*) 30 ml PO DAILY PRN PRN Reason: CONSTIPATION Magnesium Oxide (Magox 400 Tab*) 400 mg PO DAILY [facility] Last Admin: 08/06/18 10:34 Dose: 400 mg Metoprolol Tartrate (Lopressor Tab*) 200 mg PO BEDTIME [facility] Last Admin: 08/05/18 20:06 Dose: 200 mg Mometasone Furoate/Formoterol Fumar (Dulera 200/5 Mdi*) 2 puff INH BID [facility] Oxybutynin Chloride (Ditropan Tab*) 10 mg PO QAM [facility] Last Admin: 08/06/18 10:34 Dose: 10 mg Spironolactone (Aldactone Tab*) 25 mg PO DAILY [facility] Last Admin: 08/06/18 10:34 Dose: 25 mg Vital Signs - 8 hr 08/06/18 08/06/18 08/06/18 08:00 12:00 12:38 Temperature 97 F 97.0 F Pulse Rate 59 59 67 Respiratory 18 18 14 Rate Blood Pressure 158/69 114/53 (mmHg) O2 Sat by Pulse 98 100 97 Oximetry Oxygen Devices in Use Now: Nasal Cannula Appearance: NAD, sitting in chair. Eyes: No Scleral Icterus Ears/Nose/Mouth/Throat: NL Teeth, Lips, Gums Respiratory: Symmetrical Chest Expansion and Respiratory Effort, - - expiratory wheeze b/l. no rhonchi or rales appreciated. Cardiovascular: NL Sounds; No Murmurs; No JVD, RRR Abdominal: NL Sounds; No Tenderness; No Distention Extremities: No Edema Skin: No Rash or Ulcers Neurological: - - oriented to name, can't interpret response to date or place. [place] but seems weak -initially would not lift arms to command but then did so Nutrition: Taking PO's Result Diagrams: 08/06/18 05:26 08/06/18 05:26 Additional Lab and Data: Laboratory Results - last 24 hr 08/05/18 08/06/18 08/06/18 16:24 05:26 05:26 WBC 18.1 H RBC 3.61 L Hgb 11.2 L Hct 33 L MCV 93 MCH 31 MCHC 33 RDW 16 H Plt Count 265 MPV 7.5 Neut % (Auto) 86.6 Lymph % (Auto) 4.3 [place] % (Auto) 8.7 Eos % (Auto) 0.1 Baso % (Auto) 0.3 Absolute Neuts (auto) 15.7 H Absolute Lymphs (auto) 0.8 L Absolute Monos (auto) 1.6 H Absolute Eos (auto) 0.0 Absolute Basos (auto) 0.1 Absolute Nucleated RBC 0.0 Nucleated RBC % 0.0 Sodium 139 Potassium 5.0 Chloride 103 Carbon Dioxide 31 Anion Gap 5 BUN 42 H Creatinine 0.90 Est GFR ( Amer) 71.5 Est GFR (Non-Af Amer) 59.1 BUN/Creatinine Ratio 46.7 H Glucose 103 H Lactic Acid 1.8 Calcium 9.3 Microbiology and Other Data: Microbiology 08/04/18 15:56 Blood Venous Blood Culture - Preliminary No Growth Day 1 08/04/18 15:56 Blood Venous Aerobic Blood Culture - Preliminary No Growth Day 1 08/04/18 21:50 Urine Legionella Urinary Antigen - Final Negative Legionella Antigen 08/04/18 21:50 Urine Streptococcus pneumoniae Ag Screen - Final Negative S. pneumo Antigen 08/04/18 21:30 Nasal Nasal Screen MRSA (PCR) - Final Mrsa Not Detected Assess/Plan/Problems-Billing Assessment: 87 year old woman with history of Afib s/p Ablation and PPM, HFpEF, dementia, moderate MVR, hypothryoidism, former smoker p/w SOB, wheezing. With Ecoli UTI same day as admission. - Patient Problems (1) Acute hypoxemic respiratory failure Current Visit: No Status: Acute Code(s): J96.01 - ACUTE RESPIRATORY FAILURE WITH HYPOXIA SNOMED Code(s): 316527022 Comment: with upper airway wheezing, some pulmonary edema on CXR, and mildly elevated BNP also with leukocytosis but had been on steroids x 1 day prior to admission so unclear significance continue lasix strict i/o concern for undiagnosed COPD given her wheezing on exam and former smoking history of unknown duration. Will add dulera, spiriva. Continue duonebs. daily weights (falling) (2) Acute diastolic CHF (congestive heart failure) Current Visit: No Status: Acute Code(s): I50.31 - ACUTE DIASTOLIC ( CONGESTIVE) HEART FAILURE SNOMED Code(s): 326826377 Comment: April 2018 Echo shows EF 50% and mid-mod MR, mild , nondiagnostic diastolic function. (3) Atrial fibrillation Current Visit: No Status: Acute Code(s): I48.91 - UNSPECIFIED ATRIAL FIBRILLATION SNOMED Code(s): 77398846 Comment: rate controlled (has PPM also) on toprol 200mg and cardizem 120mg not on anticoagulation due to frequent falls (stopped likely in June?) (4) Bronchospasm Current Visit: No Status: Acute Code(s): J98.01 - ACUTE BRONCHOSPASM SNOMED Code(s): 2965608 Comment: dulera, spiriva added continue duo nebs poor reaction to prednisone in past. did get solumedrol in ED on admission, 125mg PFTs? as outpatient (5) Dementia Current Visit: No Status: Acute Code(s): F03.90 - UNSPECIFIED DEMENTIA WITHOUT BEHAVIORAL DISTURBANCE SNOMED Code(s): 28977755 Comment: with delirium (improving) Ecoli UTI on Ucx 08/04 (6) MED (obstructive sleep apnea) Current Visit: No Status: Acute Code(s): G47.33 - OBSTRUCTIVE SLEEP APNEA ( ADULT) (PEDIATRIC) SNOMED Code(s): 11780249 Comment: pt had been refusing to use CPAP, but improved compliance with encouragement (7) Physical deconditioning Current Visit: No Status: Acute Code(s): R53.81 - OTHER MALAISE SNOMED Code(s): 48991473584295 Comment: pt is very deconditioned from [facility] (8) E-coli UTI Current Visit: Yes Status: Acute Code(s): N39.0 - URINARY TRACT INFECTION, SITE NOT SPECIFIED; B96.20 - UNSP ESCHERICHIA COLI THE CAUSE OF DISEASES CLASSD ELSR SNOMED Code(s): 365170181 Comment: continue cftx, had been planned to start cefdinir as outpatient. (9) DVT prophylaxis Current Visit: No Status: Acute Code(s): MUP3044 - SNOMED Code(s): 910821261 Comment: Lovenox Status and Disposition: medicine inpatient.
[2018-08-06] MEDS ORDERED: Spiriva Inhaler DEVICE* 1 EACH DEVICE INH SCH ×2 (13:00→14:00)
[2018-08-06 13:22] LABS: Urine Appearance Clear; Urine Bilirubin Negative (Negative); Urine Blood Negative (Negative); Urine Color Yellow; Urine Glucose Negative (Negative); Urine Ketones Negative (Negative); Urine Nitrite Negative (Negative); Urine Protein Negative (Negative); Urine Specific Gravity 1.016 (1.010-1.030); Urine Urobilinogen Negative (Negative)
[2018-08-06] MEDS: Tiotropium CAP.INH* CAP.INH/18 MCG (USE ORDER SET !) INH SCH (15:47)
[2018-08-06] MEDS: Mometasone/Formoter 200/5 MDI INH SCH (19:26)
[2018-08-06] MEDS: Metoprolol Tartrate TAB* 100 MG TAB PO SCH (21:35)
[2018-08-06] MEDS: Enoxaparin(*) 40 MG/0.4 ML SYR SUBCUT SCH (21:35)
[2018-08-07] MEDS: Levothyroxine TAB* 25 MCG TAB PO SCH (05:49)
[2018-08-07] MEDS: Tiotropium CAP.INH* CAP.INH/18 MCG (USE ORDER SET !) INH SCH (07:52)
[2018-08-07] MEDS: Mometasone/Formoter 200/5 MDI INH SCH (07:53)
[2018-08-07 08:49] LABS: ABS Eosinophils 0.1 10^3/ul (0-0.6); ABS Lymphocytes 0.7 10^3/ul (1.0-4.8); ABS Monocytes 0.8 10^3/ul (0-0.8); ABS Neutrophils 6.2 10^3/ul (1.5-7.7); Eosinophil % 1.3 %; Hematocrit 36 % (35-47); Hemoglobin 11.9 g/dL (12.0-16.0); Lymphocyte % 8.6 %; Mean Corpuscular HGB Conc 33 g/dL (31-36); Mean Corpuscular Hemoglobin 31 pg (27-31); Mean Corpuscular Volume 93 fL (80-97); Mean Platelet Volume 6.9 fL (7.4-10.4); Platelet Count 260 10^3/uL (150-450); Red Blood Count 3.85 10^6 /uL (3.70-4.87); Red Cell Distribution Width 16 % (10-15); White Blood Count 7.8 10^3/uL (3.5-10.8)
[2018-08-07 09:05] LABS: BUN/Creatinine Ratio 46.8 (8-20); C Reactive Protein 35.13 mg/L (<8.01); Calcium 8.8 mg/dL (8.6-10.3); EGFR African American 83.1 (>60); EGFR Non-African American 68.7 (>60); Potassium 4.4 mmol/L (3.5-5.0)
[2018-08-07] MEDS: cefTRIAXone(*) 1 GM in NS 0.9% 50 ML* 50 ML IVPB SCH (09:07)
[2018-08-07] MEDS: Fluorometholone 0.1% OPTH.SUS* 5 ML BTL BOTH EYES SCH (09:10)
[2018-08-07] MEDS: Calcium/Vitamin D TAB 250/125* TAB PO SCH (09:10)
[2018-08-07] MEDS: Furosemide TAB* 40 MG PO SCH (09:10)
[2018-08-07] MEDS: Spironolactone TAB* 25 MG PO SCH (09:10)
[2018-08-07] MEDS: Magnesium Oxide TAB* 400 MG PO SCH (09:10)
[2018-08-07] MEDS: Oxybutynin TAB* 5 MG PO SCH (09:11)
[2018-08-07] MEDS: Calcium Carbonate CHEW TAB* 500 MG (TUMS) PO SCH (09:11)
[2018-08-07] MEDS: Diltiazem CD CAP* 120 MG PO SCH (09:20)
[2018-08-07 13:16] VITALS: BP 110/50
--- NOTE | 2018-08-07 13:42 | DS ---
DISCHARGE SUMMARY: DATE OF ADMISSION: 08/04/18 DATE OF DISCHARGE: 08/07/18 ADMITTING PROVIDER: BRYANT Bermudez PRIMARY CARE PHYSICIAN: Currently, Dr. Roberta Ponce (resident of [facility] ). ATTENDING PHYSICIAN ON DAY OF DISCHARGE: Randell High MD CHIEF COMPLAINT: Shortness of breath. PRINCIPAL DIAGNOSES: Hypoxic respiratory failure in the setting of suspected diastolic heart failure exacerbation; bronchospasm with smoking history, cannot rule out component of chronic obstructive pulmonary disease; recent pansensitive Escherichia coli urinary tract infection; course complicated by fall with hit to the head, but negative imaging. HISTORY AND PRESENT ILLNESS AND HOSPITAL COURSE: Janelle Carrero is an 87-year- old female with past medical history of dementia, diastolic heart failure, atrial fibrillation until recently on Coumadin but in the setting of recent falls have been stopped off of that, former smoker, hyperlipidemia, hypothyroidism, mild to moderate mitral valve regurgitation. She had previously been evaluated the same morning of admission with oxygen saturations of 90% to 91%, was found to have urinary tract infections at home with azithromycin, cefdinir and prednisone; however, oxygen saturations continued to be low at [facility], so she returned to the ER. She initially was put on 4 L to maintain sats in the high 90s, was unable to participate in the interview and workup initially included lactic acid of 2.5, elevated BNP in the 600s. Imaging of the chest revealed some interstitial pulmonary edema. She is getting albuterol, Solu-Medrol 125 mg IVs and was referred to the hospitalist service for admission. Initially, the suspicion was for diastolic heart failure exacerbation, started one dose of Lasix IV and then next day 40 mg p.o. and did on the first night have agitation on the steroids and that was not continued. She had an initial leukocytosis of 12.8, then on 08/06/18 18.1 and on day of discharge 7.8. Her CRP on day of discharge was 35, BNP had improved to 395 and her weight had fallen 3 kg. She was also noted to be bronchospastic and upon review of prior H and Ps, it seems like she stopped smoking in the 1970s when she was approximately 39 years old. She suffers from dementia, initially very hard to understand and even when improved, still suffers from some dementia and could not tell me how many packs per day she smoked, but she was empirically started on Spiriva and Dulera and seemed to have less bronchospasm. Do recommend getting formal pulmonary consultation as an outpatient setting with consideration for pulmonary function tests. Additional observation records from Dr. Schmitz's office were requested and no mention of her smoking duration was in those either, but they did not have any prior pulmonary function test results. Her blood cultures were negative x2 days. MRSA nares was negative. Streptococcal pneumoniae and urine antigen were negative and Legionella urinary antigen was negative. She was continued on ceftriaxone for her pansensitive E. coli that had been drawn in the ED on the morning of admission and she was afebrile. She did have a fall overnight when she was assisted with 2 aides, but mistimed her sit on the toilet and had some impact to the head. She had a CT head noncontrast, which showed no bleed or other acute abnormality. She had repeat urinalysis, which cleared. DISCHARGE MEDIATIONS: Include: 1. Acetaminophen 650 mg p.o. q.6 hours p.r.n., not to exceed 4 g daily (she does attest to some pain in her left hip that is chronic). 2. Albuterol HFA 1 puff inhaled q.4 hours p.r.n. 3. Calcium carbonate 500 mg p.o. daily. 4. Calcium carbonate plus vitamin D3 one tab p.o. daily. 5. Diltiazem 120 mg p.o. daily. 6. Docusate 200 mg p.o. at bedtime p.r.n. 7. Fluorometholone 0.1% ophthalmic suspension both eyes b.i.d. 8. Lasix 20 mg p.o. daily (new). 9. Levothyroxine 25 mcg p.o. daily. 10. Milk of magnesia 30 mL p.o. daily p.r.n. 11. Magnesium oxide 400 mg p.o. daily. 12. Metoprolol tartrate 200 mg p.o. at bedtime. 13. Oxybutynin 10 mg p.o. q.a.m. 14. Crestor 20 mg p.o. every other day. 15. Spiriva 1 capsule inhale daily (new). 16. Spironolactone 25 mg p.o. daily. 17. Azithromycin 250 mg p.o. daily for 6 tabs. 18. Cefdinir 300 mg p.o. b.i.d. (would stop after 2 more days, this was a former medication, it is unclear if she ever started). 19. Breo Ellipta 1 inhaled daily (new). FOLLOWUP: Please follow up with Dr. Roberta Ponce at [facility]. I would recommend consideration for pulmonary function test given her smoking history and bronchospasm on exam, intermittently that seemed improved with LABA's and inhaled steroids and anticholinergic agents. She does actually still have a little bit of upper airway referred breath sounds, though these are not concerning for dangerous stridor at the moment. Potentially could retrial steroids, but she does in the setting of dementia and this admission also have poor reaction to the steroids it seems. DISPOSITION: To [facility]. CONDITION: Improved. TIME SPENT: Time spent on discharge, 40 minutes. [id number]/CPS #: [id number] MTDD
== END 2018-08-07 16:47 | DRG 189 ==
LOC: ED 14:50 → MED 19:02
PROVIDERS: ADMIT Internal Medicine; ATTEND Internal Medicine
DX: J96.01 Acute respiratory failure with hypoxia (principal); I50.33 Acute on chronic diastolic (congestive) heart failure; N39.0 Urinary tract infection, site not specified; J44.9 Chronic obstructive pulmonary disease, unspecified; J98.01 Acute bronchospasm; F03.90 Unspecified dementia, unspecified severity, without behavioral disturbance, psychotic disturbance, mood disturbance, and anxiety; I48.91 Unspecified atrial fibrillation; E78.5 Hyperlipidemia, unspecified; E03.9 Hypothyroidism, unspecified; I34.0 Nonrheumatic mitral (valve) insufficiency; B96.20 Unspecified Escherichia coli [E. coli] as the cause of diseases classified elsewhere; W18.30XA Fall on same level, unspecified, initial encounter; Y92.230 Patient room in hospital as the place of occurrence of the external cause; E78.00 Pure hypercholesterolemia, unspecified; I11.0 Hypertensive heart disease with heart failure; Z66 Do not resuscitate; R47.1 Dysarthria and anarthria; G47.33 Obstructive sleep apnea (adult) (pediatric); Z87.440 Personal history of urinary (tract) infections; Z95.0 Presence of cardiac pacemaker; Z97.4 Presence of external hearing-aid; Z87.891 Personal history of nicotine dependence; Z80.3 Family history of malignant neoplasm of breast
CPT/HCPCS: 36415; 70450; 71046; 80048; 80053; 81003; 83605; 83880; 84484; 85025; 85027; 85610; 86140; 87040; 87641; 87899; 93005; 94640; 99284; A9270-GY; J0696; J1630; J1650; J1940; J2930